=== PATIENT | female | born 1940 | race Caucasian/White ===

== ENCOUNTER 2016-11-13 12:27 | Emergency (ER) | payer MEDICARE, OTHER ==
--- NOTE | 2016-11-13 12:42 | ED Physician Documentation ---
History of Present Illness - Stated complaint Stated Complaint: L HAND SWELLING - Chief complaint Chief Complaint: Ext Problem - History obtained from History obtained from: Patient - Additonal information Additional information: This is a very pleasant 76-year-old woman with history of ovarian cancer, finished chemotherapy a few months ago. Still has a Port-A-Cath in place on the left. She returned from visiting to see her daughter in [place] 6 days ago and developed right hand and more recently left hand swelling associated with mild shortness of breath and feeling a little woozy and fatigue. There is no chest pain, no pedal edema, no changes in urinary habits. She has never had a DVT but is worried about this. Review of Systems Constitutional: reports: Fatigue. 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 : None HEENT: None Psych: Depression Musculoskeletal: Osteoarthritis Derm: None - Past Surgical History Past Surgical History: Yes Ortho: Hip replacement, Knee replacement /BAND SCROLL SAW OPERATOR: Hysterectomy HEENT: Tonsil/Adenoidectomy - Present Medications Home Medications: Ambulatory Orders Medication Instructions Recorded Confirmed Carvedilol 6.25 mg PO BID 02/16/16 09/19/16 Losartan [Cozaar] 25 mg PO DAILY 02/16/16 09/19/16 Omeprazole [PriLOSEC] 20 mg PO DAILY 02/16/16 09/19/16 Cyanocobalamin (Vitamin B-12) 1,000 mcg PO DAILY 03/27/16 09/19/16 [B-12] Bupropion HCl [Wellbutrin Sr] 150 mg PO BID 04/02/16 09/19/16 - Allergies Allergies/Adverse Reactions: Allergies Allergy/AdvReac Type Severity Reaction Status Date / Time morphine Allergy Nausea Verified 04/02/16 11:20 tolterodine Allergy Unknown Verified 04/02/16 11:20 lansoprazole AdvReac Unknown Verified 04/02/16 11:20 lisinopril AdvReac Rash Verified 04/02/16 11:20 oxybutynin AdvReac Cramps Verified 04/02/16 11:20 ranitidine AdvReac Unknown Verified 04/02/16 11:20 simvastatin AdvReac Unknown Verified 04/02/16 11:20 - Social History Does the pt smoke?: No Smoking Status: Former smoker Does the pt drink ETOH?: No Does the pt have substance abuse?: No - Immunizations Immunizations are current?: Yes - POLST Patient has POLST: No PD ED PE NORMAL - Vitals Vital signs reviewed: Yes (normal) - General General: Alert and oriented X 3, No acute distress - HEENT HEENT: PERRL, EOMI - Cardiac Cardiac: Other (No swelling or redness around her Port-A-Cath on the left chest wall) - Respiratory Respiratory: No respiratory distress - Extremities Extremities: Other (Mild swelling of the right hand with almost undetectable swelling of the left hand, no tenderness or limited range of motion or diminished radial pulses. No pedal edema.) - Neuro Neuro: Alert and oriented X 3, Normal speech - Psych Psych: Normal mood, Normal affect Results - Vitals Vitals: Vital Signs - 24 hr 11/13/16 12:31 Temperature 36.9 C Heart Rate 80 Respiratory 20 Rate Blood Pressure 110/69 O2 Saturation 99 Oxygen O2 Source Room air - Labs Labs: Laboratory Tests 11/13/16 11/13/16 14:37 14:37 WBC 7.3 RBC 3.35 L Hgb 11.0 L Hct 32.0 L MCV 95.7 MCH 32.7 H MCHC 34.2 RDW 12.5 Plt Count 177 MPV 6.9 L Neut # 5.0 Lymph # 1.6 [place] # 0.6 Eos # 0.1 Baso # 0.0 Absolute Nucleated RBC 0.00 Nucleated RBCs 0.0 Sodium 137 Potassium 4.1 Chloride 102 Carbon Dioxide 25 Anion Gap 10.0 BUN 35 H Creatinine 1.6 H Estimated GFR (MDRD) 32 L Glucose 102 H Calcium 9.9 Total Bilirubin 1.0 AST 15 ALT 14 Alkaline Phosphatase 69 Total Protein 7.7 Albumin 4.4 Globulin 3.3 Albumin/Globulin Ratio 1.3 Lipase 46 - Rads (name of study) BUE Doppler Radiology: Prelim report reviewed (no DVT) PD MEDICAL DECISION MAKING - ED course ED course: She presents with upper extremity edema that is barely noticeable on exam, there is no evidence of heart failure. She was worried about DVT related to her port, however this is not evident. Renal function is stable and anemia is improved compared to prior labs. Departure - Departure Disposition: 01 Home, Self Care Clinical Impression: Renal insufficiency, Edema of both upper extremities Anemia Qualifiers: Anemia type: other cause Other causes of anemia: antineoplastic chemotherapy Qualified Code(s): D64.81 - Anemia due to antineoplastic chemotherapy Condition: Good Record reviewed to determine appropriate education?: Yes Comments: Call your doctor to arrange a follow up appointment. Make the next available appointment. In the interim return anytime if worse or if new symptoms develop.
[2016-11-13 14:45] LABS: BASOPHILS % (AUTO) 0.2 %; EOSINOPHILS # (AUTO) 0.1 10^3/uL (0.0-0.7); EOSINOPHILS % (AUTO) 1.7 %; LYMPHOCYTES # (AUTO) 1.6 10^3/uL (1.5-3.5); LYMPHOCYTES % (AUTO) 21.9 %; MEAN CORPUSCULAR HEMOGLOBIN 32.7 pg (27.0-31.0); MEAN CORPUSCULAR HGB CONC 34.2 g/dL (32.0-36.0); MEAN CORPUSCULAR VOLUME 95.7 fL (81.0-99.0); MEAN PLATELET VOLUME 6.9 fL (7.9-10.8); MONOCYTES # (AUTO) 0.6 10^3/uL (0.0-1.0); MONOCYTES % (AUTO) 7.7 %; NEUTROPHILS % (AUTO) 68.5 %; RED BLOOD COUNT 3.35 10^6/uL (4.20-5.40); RED CELL DISTRIBUTION WIDTH 12.5 % (12.0-15.0); UNCORRECTED WHITE BLOOD COUNT 7.3 x10^3/uL; WHITE BLOOD COUNT 7.3 x10^3/uL (4.8-10.8)
[2016-11-13 14:58] LABS: ALBUMIN/GLOBULIN RATIO 1.3 (1.0-2.2); CALCIUM 9.9 mg/dL (8.5-10.3); CREATININE 1.6 mg/dL (0.4-1.0); POTASSIUM 4.1 mmol/L (3.5-5.0); TOTAL PROTEIN 7.7 g/dL (6.7-8.2)
[2016-11-13 15:18] VITALS: BP 126/78
--- NOTE | 2016-11-13 18:04 | Ultrasound Report ---
BILATERAL UPPER EXTREMITY VENOUS DUPLEX: 11/13/2016 CLINICAL INDICATION: Bilateral hand swelling. TECHNIQUE: Real-time sonographic vascular imaging was performed by the construction helper through the bilate ral upper extremities utilizing both color-flow and Doppler flow analysis. Multiple wireless sales representative st atic images were saved for review. FINDINGS: There is normal flow and compression in the bilateral internal jugular, subclavian, axilla ry, brachial, basilic, and cephalic veins. No DVT is identified. IMPRESSION: NO EVIDENCE OF A DVT IN EITHER ARM. JOB #: [id number] EXT JOB #:[id number]
== END 2016-11-13 15:18 | disposition home or self-care (01) ==
LOC: ED 12:27
DX: N28.9 Disorder of kidney and ureter, unspecified (principal); R60.9 Edema, unspecified; D64.81 Anemia due to antineoplastic chemotherapy; Z85.43 Personal history of malignant neoplasm of ovary; I10 Essential (primary) hypertension; K21.9 Gastro-esophageal reflux disease without esophagitis; M19.90 Unspecified osteoarthritis, unspecified site; Z87.891 Personal history of nicotine dependence
CPT/HCPCS: 36415; 80053; 83690; 85025; 93970; 99283

== ENCOUNTER 2016-12-10 11:15 | Outpatient (CLI) | payer MEDICARE, OTHER | END 2016-12-10 11:16 | disposition home or self-care (01) | DX: C57.02 Malignant neoplasm of left fallopian tube (principal) ==

== ENCOUNTER 2017-01-24 13:00 | Outpatient (CLI) | payer MEDICARE, OTHER | END 2017-01-24 13:01 | disposition home or self-care (01) | LOC: LAB.F 13:00 | PROVIDERS: ATTEND Urology | DX: N30.90 Cystitis, unspecified without hematuria (principal); R39.15 Urgency of urination | CPT/HCPCS: 87086 ==

== ENCOUNTER 2017-02-27 00:01 | Outpatient (CLI) | payer MEDICARE, OTHER | END 2017-02-27 00:02 | disposition critical access hospital (66) | LOC: EMS 00:01 | PROVIDERS: ATTEND Surgery | DX: I10 Essential (primary) hypertension (principal) | CPT/HCPCS: A0425; A0429 ==

== ENCOUNTER 2017-02-27 00:22 | Emergency (ER) | payer MEDICARE, OTHER ==
[2017-02-27 00:40] LABS: BILIRUBIN,URINE NEGATIVE (NEGATIVE); PH,URINE 6.5 PH (5.0-7.5)
[2017-02-27 00:41] LABS: UA w/ MICROSCOPIC CHARGE YES
[2017-02-27 00:47] LABS: UR CULTURE IF IND NOT INDICATED; WBC,URINE 0-3 /HPF (0-5)
[2017-02-27 01:03] LABS: BASOPHILS % (AUTO) 1.1 %; EOSINOPHILS # (AUTO) 0.1 10^3/uL (0.0-0.7); EOSINOPHILS % (AUTO) 1.2 %; HGB - HEMOGLOBIN 10.8 g/dL (12.0-16.0); LYMPHOCYTES # (AUTO) 1.7 10^3/uL (1.5-3.5); LYMPHOCYTES % (AUTO) 40.9 %; MEAN CORPUSCULAR HEMOGLOBIN 33.1 pg (27.0-31.0); MEAN CORPUSCULAR HGB CONC 34.7 g/dL (32.0-36.0); MEAN CORPUSCULAR VOLUME 95.5 fL (81.0-99.0); MEAN PLATELET VOLUME 6.6 fL (7.9-10.8); MONOCYTES # (AUTO) 0.8 10^3/uL (0.0-1.0); MONOCYTES % (AUTO) 19.2 %; NEUTROPHILS # (AUTO) 1.5 10^3/uL (1.5-6.6); NEUTROPHILS % (AUTO) 37.6 %; RED BLOOD COUNT 3.25 10^6/uL (4.20-5.40); UNCORRECTED WHITE BLOOD COUNT 4.1 x10^3/uL; WHITE BLOOD COUNT 4.1 x10^3/uL (4.8-10.8)
[2017-02-27 01:19] LABS: ALBUMIN/GLOBULIN RATIO 1.5 (1.0-2.2); BILIRUBIN,TOTAL 0.6 mg/dL (0.2-1.0); CALCIUM 9.8 mg/dL (8.5-10.3); CREATININE 1.2 mg/dL (0.4-1.0); POTASSIUM 3.7 mmol/L (3.5-5.0); TOTAL PROTEIN 7.6 g/dL (6.7-8.2)
[2017-02-27] MEDS ORDERED: LABETALOL 5 MG/1 ML 20 ML MDV IVP STA ×2 (01:19→02:20)
[2017-02-27] MEDS ORDERED: LABETALOL 20 MG/4 ML SYRINGE IVP ONE (01:25)
[2017-02-27] MEDS ORDERED: SODIUM CHLORIDE FLUSH 0.9% 10 ML SYRINGE IVP ONE (02:20)
[2017-02-27] MEDS ORDERED: ACETAMINOPHEN 500 MG TABLET PO STA (02:50)
--- NOTE | 2017-02-27 02:50 | ED Physician Documentation ---
History of Present Illness - Stated complaint Stated Complaint: HIGH BP - Chief complaint Chief Complaint: General - History obtained from History obtained from: Patient - History of Present Illness Timing: Today - Additonal information Additional information: 77 y/o female on avastin and adriamycin for recurrent ovarian CA has developed hypertension with a headache. She does not get headaches and her blood pressure has been markedly elevated. She has the headache but no vomiting or visual changes. Review of Systems Constitutional: denies: Fever, Myalgias, Fatigue Eyes: denies: Decreased vision Ears: denies: Ear pain Nose: denies: Congestion Throat: denies: Sore throat Cardiac: denies: Chest pain / pressure, Palpitations Respiratory: denies: Dyspnea, Cough GI: denies: Abdominal Pain, Nausea, Vomiting : denies: Dysuria, Frequency Skin: denies: Rash Musculoskeletal: denies: Neck pain, Back pain, Extremity pain Neurologic: reports: Headache. 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 cancer : None HEENT: None Psych: Depression Musculoskeletal: Osteoarthritis Derm: None - Past Surgical History Past Surgical History: Yes Ortho: Hip replacement, Knee replacement /STUNNER ANIMAL: Hysterectomy HEENT: Tonsil/Adenoidectomy - Present Medications Home Medications: Ambulatory Orders Medication Instructions Recorded Confirmed Carvedilol 6.25 mg PO BID 02/16/16 02/27/17 Losartan [Cozaar] 25 mg PO DAILY 02/16/16 02/27/17 Omeprazole [PriLOSEC] 20 mg PO DAILY 02/16/16 02/27/17 Cyanocobalamin (Vitamin B-12) 1,000 mcg PO DAILY 03/27/16 02/27/17 [B-12] Bupropion HCl [Wellbutrin Sr] 150 mg PO BID 04/02/16 02/27/17 Chemo 02/27/17 Labetalol [Trandate] 100 mg PO BID #30 tablet 02/27/17 - Allergies Allergies/Adverse Reactions: Allergies Allergy/AdvReac Type Severity Reaction Status Date / Time morphine Allergy Nausea Verified 02/27/17 00:45 tolterodine Allergy Unknown Verified 02/27/17 00:45 lansoprazole AdvReac Unknown Verified 02/27/17 00:45 lisinopril AdvReac Rash Verified 02/27/17 00:45 oxybutynin AdvReac Cramps Verified 02/27/17 00:45 ranitidine AdvReac Unknown Verified 02/27/17 00:45 simvastatin AdvReac Unknown Verified 02/27/17 00:45 - Social History Does the pt smoke?: No Smoking Status: Former smoker Does the pt drink ETOH?: No Does the pt have substance abuse?: No - Immunizations Immunizations are current?: Yes - POLST Patient has POLST: No PD ED PE NORMAL - Vitals Vital signs reviewed: Yes (hypertensive marked) - General General: Alert and oriented X 3, No acute distress, Well developed/nourished - HEENT HEENT: Atraumatic, PERRL, EOMI - Neck Neck: Supple, no meningeal sign - Cardiac Cardiac: RRR, No murmur - Respiratory Respiratory: No respiratory distress, Clear bilaterally - Abdomen Abdomen: Soft, Non tender - Back Back: No CVA TTP, No spinal TTP - Derm Derm: Normal color, Warm and dry, No rash - Extremities Extremities: No deformity, No edema - Neuro Neuro: mushroom laborer 2-12 intact, No motor deficit, No sensory deficit, Normal speech - Psych Psych: Normal mood, Normal affect Results - Vitals Vitals: Vital Signs - 24 hr 02/27/17 02/27/17 02/27/17 00:26 01:30 01:35 Temperature 36.2 C L Heart Rate 99 70 71 Respiratory 16 Rate Blood Pressure 204/116 H 170/84 H 177/81 H O2 Saturation 98 02/27/17 02/27/17 02/27/17 01:40 01:45 02:18 Temperature Heart Rate 67 69 73 Respiratory 18 Rate Blood Pressure 180/96 H 184/99 H 174/91 H O2 Saturation 98 02/27/17 02/27/17 02/27/17 02:30 02:40 02:48 Temperature Heart Rate 73 68 67 Respiratory 16 18 Rate Blood Pressure 154/88 H 171/87 H 159/87 H O2 Saturation 98 98 02/27/17 03:24 Temperature Heart Rate 73 Respiratory Rate Blood Pressure 164/91 H O2 Saturation 98 Oxygen O2 Source Room air - EKG (time done) 0045 Rate: Rate (enter#) (79) Ischemia: Normal ST segments, Q waves (isolated to III and aVF) Compare to prior EKG: Unchanged from prior EKG (04-06-16) Computer interpretation: Agree with computer - Labs Labs: Laboratory Tests 02/27/17 02/27/17 02/27/17 00:30 00:56 00:56 WBC 4.1 L RBC 3.25 L Hgb 10.8 L Hct 31.0 L MCV 95.5 MCH 33.1 H MCHC 34.7 RDW 16.0 H Plt Count 137 MPV 6.6 L Neut # 1.5 Lymph # 1.7 [place] # 0.8 Eos # 0.1 Baso # 0.0 Absolute Nucleated RBC 0.00 Nucleated RBCs 0.0 Sodium 138 Potassium 3.7 Chloride 103 Carbon Dioxide 24 Anion Gap 11.0 BUN 31 H Creatinine 1.2 H Estimated GFR (MDRD) 44 L Glucose 92 Calcium 9.8 Total Bilirubin 0.6 AST 19 ALT 16 Alkaline Phosphatase 57 Troponin I B-Natriuretic Peptide Total Protein 7.6 Albumin 4.6 Globulin 3.0 Albumin/Globulin Ratio 1.5 Lipase 29 Urine Color YELLOW Urine Clarity CLEAR Urine pH 6.5 Ur Specific [place] 1.010 Urine Protein 30 H Urine Glucose (UA) NEGATIVE Urine Ketones NEGATIVE Urine Occult Blood NEGATIVE Urine Nitrite NEGATIVE Urine Bilirubin NEGATIVE Urine Urobilinogen 0.2 (NORMAL) Ur Leukocyte Esterase NEGATIVE Urine RBC 0-5 Urine WBC 0-3 Ur Squamous Epith Cells MANY Squamous H Urine Bacteria Rare Ur Microscopic Review INDICATED Urine Culture Comments NOT INDICATED 02/27/17 02/27/17 00:56 00:56 WBC RBC Hgb Hct MCV MCH MCHC RDW Plt Count MPV Neut # Lymph # [place] # Eos # Baso # Absolute Nucleated RBC Nucleated RBCs Sodium Potassium Chloride Carbon Dioxide Anion Gap BUN Creatinine Estimated GFR (MDRD) Glucose Calcium Total Bilirubin AST ALT Alkaline Phosphatase Troponin I < 0.04 B-Natriuretic Peptide 439 H Total Protein Albumin Globulin Albumin/Globulin Ratio Lipase Urine Color Urine Clarity Urine pH Ur Specific [place] Urine Protein Urine Glucose (UA) Urine Ketones Urine Occult Blood Urine Nitrite Urine Bilirubin Urine Urobilinogen Ur Leukocyte Esterase Urine RBC Urine WBC Ur Squamous Epith Cells Urine Bacteria Ur Microscopic Review Urine Culture Comments PD MEDICAL DECISION MAKING - ED course Complexity details: reviewed old records, reviewed results, re-evaluated patient , considered differential, d/w patient ED course: 77 y/o female with symptomatic hypertension on avastin is given IV labetalol 10mg with reduction in the blood pressure and a second dose is given with further reduction. She is given tylenol for the headache and her blood pressure is considered treatable with the labatelol and we will start her on an oral preparation to use while she is on the avastin Departure - Departure Disposition: Home, Self Care Clinical Impression: Hypertensive urgency Condition: Stable Instructions: Hypertension Malignant Dc Follow-Up: ANTONIA GODWIN [Primary Care Provider] - Prescriptions: Labetalol [Trandate] 100 mg PO BID #30 tablet Comments: Today your blood pressure was very high and caused symptoms. The highest we registered today was 204/116. You were given labetalol intravenously a total of 20mg. This medication is available in an oral form and we have prescribed 100mg twice per day to start. It may be necessary to increase the dose in 3-4 days. Follow up with Dr. Kelly today as planned.
[2017-02-27] MEDS ORDERED: ACETAMINOPHEN 500 MG TABLET PO ONE (02:51)
[2017-02-27 04:01] VITALS: BP 153/82
== END 2017-02-27 04:01 | disposition home or self-care (01) ==
LOC: EDUNIT# → ED 00:22 → SUPCPDRO 00:22 → ED 04:01
DX: I16.0 Hypertensive urgency (principal); R51 Headache; C56.9 Malignant neoplasm of unspecified ovary; Z87.891 Personal history of nicotine dependence
CPT/HCPCS: 36415; 80053; 81001; 83690; 83880; 84484; 85025; 93005; 93010; 96374; 96376; 99284; A9270; 81003; 87086

== ENCOUNTER 2017-04-19 09:48 | Outpatient (CLI) | payer MEDICARE, OTHER ==
--- NOTE | 2017-04-19 15:14 | CT Report ---
CT OF THE CHEST WITHOUT CONTRAST: 04/19/2017 CLINICAL INDICATION: Recurrent ovarian cancer. COMPARISON: 11/27/2016. TECHNIQUE: Axial CT images of the chest were obtained without intravenous contrast. FINDINGS: The heart and great vessels demonstrate mild atherosclerotic calcification. No hilar or me diastinal lymphadenopathy is present. The lungs demonstrate linear scarring at the right base. No mary picious pulmonary nodule or mass lesion is present. No effusion or pneumothorax is seen. The osseous structures demonstrate degenerative changes. IMPRESSION: RESOLUTION OF PREVIOUSLY SEEN RIGHT EFFUSION. LINEAR SCARRING AT THE RIGHT BASE. NO DEFI NITE EVIDENCE OF METASTATIC DISEASE. In accordance with CT protocol optimization, one or more of the following dose reduction techniques w ere utilized for this exam: automated exposure control, adjustment of mA and/or KV based on patient size, or use of iterative reconstructive technique. JOB #: [id number] EXT JOB #:[id number]
--- NOTE | 2017-04-19 15:20 | CT Report ---
CT OF THE ABDOMEN AND PELVIS WITHOUT CONTRAST: 04/19/2017 CLINICAL INDICATION: Recurrent ovarian cancer. TECHNIQUE: Axial CT images of the abdomen and pelvis were obtained without intravenous contrast, due to patient's renal dysfunction. Oral contrast was administered. FINDINGS: ABDOMEN: Allowing for the lack of intravenous contrast enhancement, the liver, spleen, pancreas, kidn eys and adrenal glands appear unremarkable. No bowel dilatation, free gas, or free fluid is present. No definite abdominal adenopathy is seen. PELVIS: Nodularity in the pericolic gutters has decreased. Postoperative changes are stable. No free fluid or pelvic adenopathy is seen. The osseous structures demonstrate degenerative changes. IMPRESSION: DECREASING NODULARITY IN THE PERICOLIC GUTTERS. NO NEW EVIDENCE OF METASTATIC DISEASE. In accordance with CT protocol optimization, one or more of the following dose reduction techniques w ere utilized for this exam: automated exposure control, adjustment of mA and/or KV based on patient size, or use of iterative reconstructive technique. JOB #: [id number] EXT JOB #:[id number]
[2017-04-19] MEDS ORDERED: IOPAMIDOL-300 50 ML VIAL PO ONE (19:08)
== END 2017-04-19 09:49 | disposition home or self-care (01) ==
LOC: DI 09:48
PROVIDERS: ATTEND Specialist
DX: C56.9 Malignant neoplasm of unspecified ovary (principal)
CPT/HCPCS: 71250; 74176; Q9967

== ENCOUNTER 2018-04-07 14:17 | Outpatient (CLI) | payer MEDICARE, OTHER ==
[~2018-04-07 14:17] MED LIST: DEXAMETHASONE 20 MG/5 ML VIAL ONE; SODIUM CHLORIDE 0.9% 0 ML IV ONE; SODIUM CHLORIDE FLUSH 0.9% 10 ML SYRINGE ONE; diphenhydrAMINE INJ 50 MG/ML VIAL ONE
--- NOTE | 2018-04-09 08:41 | Mammography Report ---
Procedure Date: 04/07/2018 Accession Number: [id number] / [id number] Procedure: [facility] - Screening Mammo Dig Bilat CPT Code: FULL RESULT: EXAM: Screening Mammo Dig Bilat DATE: 04/07/2018 3:27 PM CLINICAL HISTORY: 78-year-old female with personal history of ovarian cancer as well as a family history of breast cancer in her daughter at age 35. TECHNIQUE: Bilateral CC and MLO views were obtained. COMPARISON: 03/01/2015, 10/16/2013, 02/28/2012, 03/12/2011. FINDINGS: The breasts demonstrate scattered fibroglandular densities bilaterally. Coarse typically benign calcifications are identified in both breasts. A port-type catheter is partially imaged over the left chest. No suspicious masses, clustered microcalcifications, or regions of architectural distortion are identified. IMPRESSION: Benign findings RECOMMENDATION: Routine annual screening unless otherwise clinically indicated. BIRADS CATEGORY 2: Benign findings STANDARD QUALIFYING STATEMENTS: 1. This examination was reviewed with the aid of Computer-Aided Detection (CAD). 2. A negative or benign imaging report should not delay biopsy if clinically suspicious findings are present. Consider surgical consultation if warrented. More than 5% of cancers are not identified by imaging. 3. Dense breasts may obscure an underlying neoplasm.
== END 2018-04-07 14:18 | disposition home or self-care (01) ==
LOC: DI 14:17
PROVIDERS: ATTEND Internal Medicine
DX: Z12.31 Encounter for screening mammogram for malignant neoplasm of breast (principal)
CPT/HCPCS: 77067

== ENCOUNTER 2018-04-18 09:35 | Outpatient (CLI) | payer MEDICARE, OTHER | END 2018-04-18 09:36 | disposition home or self-care (01) | LOC: DI 09:35 | PROVIDERS: ATTEND Internal Medicine | DX: C56.9 Malignant neoplasm of unspecified ovary (principal) | CPT/HCPCS: 93306 ==

== ENCOUNTER 2018-06-23 10:38 | Outpatient (CLI) | payer MEDICARE, OTHER | END 2018-06-23 10:39 | disposition critical access hospital (66) | LOC: EMS 10:38 | PROVIDERS: ATTEND Surgery | DX: I10 Essential (primary) hypertension (principal); R51 Headache | CPT/HCPCS: A0425; A0429 ==

== ENCOUNTER 2018-06-23 11:00 | Emergency (ER) | payer MEDICARE, OTHER ==
[2018-06-23] MEDS ORDERED: METOPROLOL 5 MG/5 ML VIAL IVP STA (11:25)
[2018-06-23] MEDS ORDERED: oxyCODONE 5 MG TABLET PO STA (11:26)
[2018-06-23] MEDS ORDERED: ONDANSETRON ODT 4 MG TABLET TL STA (11:26)
--- NOTE | 2018-06-23 11:28 | ED Physician Documentation ---
History of Present Illness - Stated complaint Stated Complaint: PALMER - Chief complaint Chief Complaint: General - Additonal information Additional information: hx from pt 78 f recurrent ovarian cancer recently avastatin was added to her chemo plan this has caused her to have a hypertensive urgency before and again she has severely elevated BP >200/120 spoke to her oncologist who had her take extra doses of her BP meds s effect has a pounding PALMER with this, no numbness or weakness and has 15 min of CP and soa this AM now better Review of Systems Constitutional: denies: Fever, Chills Eyes: denies: Loss of vision Ears: denies: Loss of hearing Throat: denies: Sore throat Cardiac: reports: Chest pain / pressure Respiratory: reports: Dyspnea GI: denies: Abdominal Pain, Nausea, Vomiting Neurologic: reports: Headache. 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 : None HEENT: None Psych: Depression Musculoskeletal: Osteoarthritis Derm: None - Past Surgical History Past Surgical History: Yes Ortho: Hip replacement, Knee replacement /WET WHEELER: Hysterectomy HEENT: Tonsil/Adenoidectomy - Present Medications Home Medications: Ambulatory Orders Medication Instructions Recorded Confirmed Carvedilol 6.25 mg PO BID 02/16/16 06/23/18 Losartan [Cozaar] 50 mg PO DAILY 02/16/16 06/23/18 Omeprazole [PriLOSEC] 20 mg PO DAILY 02/16/16 06/23/18 Cyanocobalamin (Vitamin B-12) 1,000 mcg PO DAILY 03/27/16 06/23/18 [B-12] Bupropion HCl [Wellbutrin Sr] 150 mg PO BID 04/02/16 06/23/18 Propylene Glycol/Peg 400 [Systane 2 drops EACHEYE TID 06/12/17 06/23/18 Ultra 0.4-0.3% Eye Drp] Dexamethasone [Decadron] 8 mg PO DAILY PRN MDD On Days 2, 02/06/18 06/23/18 3, 4 s/p chemo infu Cyclosporine [Restasis] 1 drops EACHEYE BID 08/01/18 10/08/18 predniSONE [Prednisone] 20 mg PO DAILY 06/18/18 06/23/18 - Allergies Allergies/Adverse Reactions: Allergies Allergy/AdvReac Type Severity Reaction Status Date / Time morphine Allergy Nausea Verified 06/18/18 13:42 tolterodine Allergy Unknown Verified 06/18/18 13:42 lansoprazole AdvReac Unknown Verified 06/18/18 13:42 lisinopril AdvReac Rash Verified 06/18/18 13:42 oxybutynin AdvReac Cramps Verified 06/18/18 13:42 ranitidine AdvReac Unknown Verified 06/18/18 13:42 simvastatin AdvReac Unknown Verified 06/18/18 13:42 - Social History Does the pt smoke?: No Smoking Status: Former smoker Does the pt drink ETOH?: No Does the pt have substance abuse?: No - Immunizations Immunizations are current?: Yes - POLST Patient has POLST: No PD ED PE NORMAL - Vitals Vital signs reviewed: Yes - General General: Alert and oriented X 3 - HEENT HEENT: PERRL, EOMI, Other (globes soft NT< no TA TTP, fundi diff to assess 2/2 catarct surgery and not dilated) - Neck Neck: Supple, no meningeal sign - Cardiac Cardiac: RRR - Respiratory Respiratory: No respiratory distress - Abdomen Abdomen: Soft, Non tender - Derm Derm: Normal color - Extremities Extremities: No deformity - Neuro Neuro: Alert and oriented X 3, business proposal rep 2-12 intact, No motor deficit, No sensory d eficit, Normal speech Eye Opening: Spontaneous Motor: Obeys Commands Verbal: Oriented GCS Score: 15 Results - Vitals Vitals: Vital Signs - 24 hr 06/23/18 11:13 Temperature 36.8 C Heart Rate 79 Respiratory 16 Rate Blood Pressure 182/114 H O2 Saturation 98 Oxygen O2 Source Room air - EKG (time done) 1129 Rate: Rate (enter#) Rhythm: NSR Intervals: No: Prolonged QT (machine reads prolonged but in lead V2 appears WNL and certainly < 1/2 R-R) Ischemia: Non specific changes PD MEDICAL DECISION MAKING - ED course ED course: labs done but won't down load into MD note - were reviewed no end organ damage identified CP was only 15 min and so doubt serial CE etc will be of use no CP now BP came down nicely feel safe to dc on her home meds as before and consider not using that chemo for this pt again as it has twice caused hypertensive urgency - Sepsis Event Vital Signs: Vital Signs - 24 hr 06/23/18 11:13 Temperature 36.8 C Heart Rate 79 Respiratory 16 Rate Blood Pressure 182/114 H O2 Saturation 98 Oxygen O2 Source Room air Departure - Departure Disposition: Home, Self Care Clinical Impression: Hypertensive urgency Condition: Good Instructions: ED Hypertension Conf Out Of Control Follow-Up: ANTONIA GODWIN [Primary Care Provider] - Comments: Your blood pressure was very high. Probably due to the avastin since you have had a similar reaction to that agent before. Thankfully no damage seems to have been done Your blood pressure came down nicely with a dose of IV lopressor I think it is now safe for you to go home Please talk to your oncologist about whether this chemo agent is right for you since it has twice caused a hypertensive urgency. Continue your usual home BP medications. If your blood pressure gets high again please jamila your oncologist PMD or come back to the ER Discharge Date/Time: 06/23/18 13:49
[2018-06-23 12:04] LABS: CREATININE 1.3 mg/dL (0.4-1.0)
[2018-06-23 12:44] LABS: CALCIUM 9.4 mg/dL (8.5-10.3)
[2018-06-23 13:42] VITALS: BP 164/97
== END 2018-06-23 13:49 | disposition home or self-care (01) ==
LOC: EDUNIT# → ED 11:00
DX: I16.0 Hypertensive urgency (principal); T45.1X1A Poisoning by antineoplastic and immunosuppressive drugs, accidental (unintentional), initial encounter; I45.81 Long QT syndrome; Z79.899 Other long term (current) drug therapy; Z87.891 Personal history of nicotine dependence
CPT/HCPCS: 36415; 80048; 84484; 93005; 99283; 99284; A9270; Q0162

== ENCOUNTER 2018-07-05 13:22 | Emergency (ER) | payer MEDICARE, OTHER ==
[2018-07-05] MEDS ORDERED: HYDROmorphone 1 MG/ML CARPUJECT IVP STA (14:28)
[2018-07-05] MEDS ORDERED: METOPROLOL 5 MG/5 ML VIAL IVP STA (14:28)
[2018-07-05] MEDS ORDERED: ONDANSETRON 4 MG/2 ML VIAL IVP STA (14:28)
--- NOTE | 2018-07-05 14:32 | ED Physician Documentation ---
PD HPI HEADACHE - Stated complaint Stated Complaint: BP HIGH/HEADACHE - Chief complaint Chief Complaint: General - History obtained from History obtained from: Patient, Family - History of Present Illness Timing - onset: Last night Timing - onset during: Sleep Timing - duration: Hours Timing - details: Abrupt onset, Still present Location: Front Quality: Throbbing Associated symptoms: No: Fever, Stiff neck, Nausea, Vomiting, Weakness, Numbness, Syncope, Seizure, Eye pain, Vision changes Improved by: Rest, Dark room Worsened by: Light, Noise Contributing factors: Other (chemo) Similar symptoms before: Diagnosis (chemo induced hypertension) Recently seen: Emergency Dept - Additional information Additional information: 78-year-old female with ovarian cancer who is on palliative chemotherapy with a Avastin has developed chemo induced hypertension. She has had this issue happen to her previously and required a dose of labetalol. She is also recently been seen in the emergency department 1 week ago and at that time improved with a dose of metoprolol intravenously. She states that she last had a dose of a Avastin about 3 weeks ago and she developed symptoms 1 week ago the seem to been better over the week and then she developed symptoms last night. She has symptoms of generalized weakness headache and fatigue. Review of Systems Constitutional: reports: Myalgias, Fatigue. denies: Fever Eyes: denies: Decreased vision Ears: denies: Ear pain Nose: denies: Congestion Throat: denies: Sore throat Cardiac: denies: Chest pain / pressure, Palpitations Respiratory: denies: Dyspnea, Cough GI: denies: Abdominal Pain, Nausea, Vomiting : denies: Dysuria, Frequency Skin: denies: Rash Musculoskeletal: denies: Neck pain, Back pain, Extremity pain Neurologic: reports: Generalized weakness, Headache. 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 HEENT: None Psych: Depression Musculoskeletal: Osteoarthritis Derm: None - Past Surgical History Past Surgical History: Yes Ortho: Hip replacement, Knee replacement /INTELLIGENCE CHIEF: Hysterectomy HEENT: Tonsil/Adenoidectomy - Present Medications Home Medications: Ambulatory Orders Medication Instructions Recorded Confirmed Carvedilol 6.25 mg PO BID 02/16/16 07/05/18 Losartan [Cozaar] 50 mg PO DAILY 02/16/16 07/05/18 Omeprazole [PriLOSEC] 20 mg PO DAILY 02/16/16 07/05/18 Cyanocobalamin (Vitamin B-12) 1,000 mcg PO DAILY 03/27/16 07/05/18 [B-12] Bupropion HCl [Wellbutrin Sr] 150 mg PO BID 04/02/16 07/05/18 Propylene Glycol/Peg 400 [Systane 2 drops EACHEYE TID 06/12/17 07/05/18 Ultra 0.4-0.3% Eye Drp] Dexamethasone [Decadron] 8 mg PO DAILY PRN MDD On Days 2, 02/06/18 07/05/18 3, 4 s/p chemo infu Cyclosporine [Restasis] 1 drops EACHEYE BID 04/16/18 07/05/18 predniSONE [Prednisone] 20 mg PO DAILY 06/18/18 07/05/18 - Allergies Allergies/Adverse Reactions: Allergies Allergy/AdvReac Type Severity Reaction Status Date / Time morphine Allergy Nausea Verified 06/18/18 13:42 tolterodine Allergy Unknown Verified 06/18/18 13:42 lansoprazole AdvReac Unknown Verified 06/18/18 13:42 lisinopril AdvReac Rash Verified 06/18/18 13:42 oxybutynin AdvReac Cramps Verified 06/18/18 13:42 ranitidine AdvReac Unknown Verified 06/18/18 13:42 simvastatin AdvReac Unknown Verified 06/18/18 13:42 - Social History Does the pt smoke?: No Smoking Status: Never smoker Does the pt drink ETOH?: No Does the pt have substance abuse?: No - Immunizations Immunizations are current?: Yes - POLST Patient has POLST: No PD ED PE NORMAL - Vitals Vital signs reviewed: Yes (tachy and hypertensive ) - General General: Alert and oriented X 3, No acute distress, Well developed/nourished - HEENT HEENT: Atraumatic, PERRL, EOMI - Neck Neck: Supple, no meningeal sign - Cardiac Cardiac: RRR, No murmur - Respiratory Respiratory: No respiratory distress, Clear bilaterally - Abdomen Abdomen: Soft, Non tender - Back Back: No CVA TTP, No spinal TTP - Derm Derm: Normal color, Warm and dry, No rash - Extremities Extremities: No deformity, No edema - Neuro Neuro: Alert and oriented X 3, child custody evaluator 2-12 intact, No motor deficit, No sensory deficit, Normal speech Eye Opening: Spontaneous Motor: Obeys Commands Verbal: Oriented GCS Score: 15 - Psych Psych: Normal mood, Normal affect Results - Vitals Vitals: Vital Signs - 24 hr 07/05/18 07/05/18 07/05/18 13:28 13:42 14:58 Temperature 36.9 C Heart Rate 101 H 85 75 Respiratory 18 18 16 Rate Blood Pressure 187/117 H 189/120 H 173/104 H O2 Saturation 98 99 96 07/05/18 15:30 Temperature Heart Rate 71 Respiratory 14 Rate Blood Pressure 150/96 H O2 Saturation 99 Oxygen O2 Source Room air - Labs Labs: Laboratory Tests 07/05/18 07/05/18 07/05/18 14:38 14:45 14:45 WBC 3.2 L RBC 2.86 L Hgb 10.3 L Hct 29.6 L MCV 103.3 H MCH 36.0 H MCHC 34.9 RDW 15.4 H Plt Count 149 MPV 7.4 L Neut # (Auto) 1.7 Lymph # (Auto) 0.9 L [place] # (Auto) 0.5 Eos # (Auto) 0.1 Baso # (Auto) 0.0 Absolute Nucleated RBC 0.00 Nucleated RBC % 0.0 Sodium 136 Potassium 4.1 Chloride 100 L Carbon Dioxide 25 Anion Gap 11.0 BUN 29 H Creatinine 1.5 H Estimated GFR (MDRD) 34 L Glucose 106 H Calcium 9.7 Total Bilirubin 1.0 AST 22 ALT 14 Alkaline Phosphatase 68 Troponin I Total Protein 7.7 Albumin 4.1 Globulin 3.6 Albumin/Globulin Ratio 1.1 Lipase 31 Urine Color YELLOW Urine Clarity CLEAR Urine pH 8.0 H Ur Specific [place] 1.015 Urine Protein 30 H Urine Glucose (UA) NEGATIVE Urine Ketones NEGATIVE Urine Occult Blood NEGATIVE Urine Nitrite NEGATIVE Urine Bilirubin NEGATIVE Urine Urobilinogen 0.2 (NORMAL) Ur Leukocyte Esterase NEGATIVE Urine RBC 0-5 Urine WBC 0-3 Ur Squamous Epith Cells FEW Squamous Urine Bacteria None Seen Ur Microscopic Review INDICATED Urine Culture Comments NOT INDICATED 07/05/18 14:45 WBC RBC Hgb Hct MCV MCH MCHC RDW Plt Count MPV Neut # (Auto) Lymph # (Auto) [place] # (Auto) Eos # (Auto) Baso # (Auto) Absolute Nucleated RBC Nucleated RBC % Sodium Potassium Chloride Carbon Dioxide Anion Gap BUN Creatinine Estimated GFR (MDRD) Glucose Calcium Total Bilirubin AST ALT Alkaline Phosphatase Troponin I 0.04 Total Protein Albumin Globulin Albumin/Globulin Ratio Lipase Urine Color Urine Clarity Urine pH Ur Specific [place] Urine Protein Urine Glucose (UA) Urine Ketones Urine Occult Blood Urine Nitrite Urine Bilirubin Urine Urobilinogen Ur Leukocyte Esterase Urine RBC Urine WBC Ur Squamous Epith Cells Urine Bacteria Ur Microscopic Review Urine Culture Comments Procedures - IVC sono (time) 1425 Bedside IVC sono: IVC measures (cm) (1.88), IVC collapsed c insp (cm) (1.1), Euvolemia PD MEDICAL DECISION MAKING - ED course Complexity details: reviewed old records, reviewed results, re-evaluated patient, considered differential, d/w patient, d/w family ED course: 78 y/o female with hypertensive urgency related to avastin is given IV metoprolol and medication for pain to include dilaudid and zofran IVP. Departure - Departure Disposition: 01 Home, Self Care Clinical Impression: Hypertensive urgency Condition: Stable Instructions: ED Hypertension Conf Out Of Control Follow-Up: ANTONIA GODWIN [Primary Care Provider] -
[2018-07-05 14:57] LABS: BASOPHILS % (AUTO) 0.5 %; EOSINOPHILS # (AUTO) 0.1 10^3/uL (0.0-0.7); EOSINOPHILS % (AUTO) 2.8 %; HGB - HEMOGLOBIN 10.3 g/dL (12.0-16.0); LYMPHOCYTES # (AUTO) 0.9 10^3/uL (1.5-3.5); LYMPHOCYTES % (AUTO) 28.6 %; MEAN CORPUSCULAR HGB CONC 34.9 g/dL (32.0-36.0); MEAN CORPUSCULAR VOLUME 103.3 fL (81.0-99.0); MEAN PLATELET VOLUME 7.4 fL (7.9-10.8); MONOCYTES # (AUTO) 0.5 10^3/uL (0.0-1.0); MONOCYTES % (AUTO) 15.3 %; NEUTROPHILS # (AUTO) 1.7 10^3/uL (1.5-6.6); NEUTROPHILS % (AUTO) 52.8 %; PLT - PLATELET COUNT 149 10^3/uL (130-450); RED BLOOD COUNT 2.86 10^6/uL (4.20-5.40); RED CELL DISTRIBUTION WIDTH 15.4 % (12.0-15.0); WHITE BLOOD COUNT 3.2 x10^3/uL (4.8-10.8)
[2018-07-05 15:06] LABS: BILIRUBIN,URINE NEGATIVE (NEGATIVE); GLUCOSE, URINE (UA) NEGATIVE (NEGATIVE); KETONES,URINE (UA) NEGATIVE (NEGATIVE); LEUKOCYTE ESTERASE, URINE NEGATIVE (NEGATIVE); NITRITE,URINE NEGATIVE (NEGATIVE); OCCULT BLOOD,URINE NEGATIVE (NEGATIVE); PROTEIN,URINE 30 mg/dL (NEGATIVE); UROBILINOGEN,URINE 0.2 (NORMAL) E.U./dL (NORMAL)
[2018-07-05 15:18] LABS: ALBUMIN 4.1 g/dL (3.2-5.5); ALBUMIN/GLOBULIN RATIO 1.1 (1.0-2.2); CALCIUM 9.7 mg/dL (8.5-10.3); CREATININE 1.5 mg/dL (0.4-1.0); TOTAL PROTEIN 7.7 g/dL (6.7-8.2)
[2018-07-05 15:20] LABS: CLARITY,URINE CLEAR (CLEAR)
[2018-07-05 15:21] LABS: BACTERIA,URINE None Seen /HPF (None Seen); RBC,URINE 0-5 /HPF (0-5); SQUAMOUS EPITHELIAL CELL,UR FEW Squamous (<= Few)
[2018-07-05 16:00] VITALS: BP 164/106
== END 2018-07-05 16:00 | disposition home or self-care (01) ==
LOC: ED 13:22
DX: I16.0 Hypertensive urgency (principal); Z79.899 Other long term (current) drug therapy; I10 Essential (primary) hypertension
CPT/HCPCS: 36415; 80053; 81001; 83690; 84484; 85025; 96374; 96375; 99284; J1170; 81003; 87086

== ENCOUNTER 2018-07-11 20:05 | Outpatient (CLI) | payer MEDICARE, OTHER | END 2018-07-11 20:06 | disposition critical access hospital (66) | LOC: EMS 20:05 | PROVIDERS: ATTEND Surgery | DX: R06.02 Shortness of breath (principal); R53.1 Weakness | CPT/HCPCS: A0425; A0429 ==

== ENCOUNTER 2018-07-11 20:28 | Emergency (ER) | payer MEDICARE, OTHER ==
[2018-07-11] MEDS ORDERED: METOPROLOL 5 MG/5 ML VIAL IVP STA ×3 (20:46→23:36)
[2018-07-11] MEDS ORDERED: ALBUTEROL NEB 2.5 MG/3 ML INH STA (20:46)
--- NOTE | 2018-07-11 21:28 | XRAY Report ---
Reason: dyspnea and cough Procedure Date: 07/11/2018 Accession Number: [id number] / [id number] Procedure: XR - Chest 2 View X-Ray CPT Code: 20885 FULL RESULT: EXAM: CHEST RADIOGRAPHY EXAM DATE: 07/11/2018 08:52 PM. CLINICAL HISTORY: Dyspnea and cough. COMPARISON: Chest CT 04/08/2018. TECHNIQUE: 2 views. FINDINGS: Lungs/Pleura: No consolidation, pleural effusion or pneumothorax. Mediastinum: Borderline cardiomegaly. Tortuous descending thoracic aorta. Port-A-Cath central line with the tip at the upper superior vena cava. IMPRESSION: No acute findings are seen. See above. RADIA
[2018-07-11 21:45] LABS: BASOPHILS % (AUTO) 0.5 %; EOSINOPHILS # (AUTO) 0.1 10^3/uL (0.0-0.7); EOSINOPHILS % (AUTO) 1.7 %; LYMPHOCYTES # (AUTO) 0.9 10^3/uL (1.5-3.5); LYMPHOCYTES % (AUTO) 21.4 %; MEAN CORPUSCULAR HEMOGLOBIN 35.2 pg (27.0-31.0); MEAN CORPUSCULAR HGB CONC 34.5 g/dL (32.0-36.0); MEAN CORPUSCULAR VOLUME 101.8 fL (81.0-99.0); MONOCYTES % (AUTO) 24.2 %; NEUTROPHILS # (AUTO) 2.1 10^3/uL (1.5-6.6); NEUTROPHILS % (AUTO) 52.2 %; PLT - PLATELET COUNT 204 10^3/uL (130-450); RED BLOOD COUNT 2.84 10^6/uL (4.20-5.40); RED CELL DISTRIBUTION WIDTH 15.6 % (12.0-15.0); WHITE BLOOD COUNT 4.1 x10^3/uL (4.8-10.8)
[2018-07-11 21:50] LABS: ALBUMIN 4.1 g/dL (3.2-5.5); ALBUMIN/GLOBULIN RATIO 1.1 (1.0-2.2); BILIRUBIN,TOTAL 0.9 mg/dL (0.2-1.0); CALCIUM 9.5 mg/dL (8.5-10.3); CREATININE 1.4 mg/dL (0.4-1.0); MAGNESIUM 1.2 mg/dL (1.7-2.8); TOTAL PROTEIN 7.9 g/dL (6.7-8.2)
[2018-07-11 22:15] LABS: BILIRUBIN,URINE NEGATIVE (NEGATIVE); GLUCOSE, URINE (UA) NEGATIVE (NEGATIVE); KETONES,URINE (UA) NEGATIVE (NEGATIVE); LEUKOCYTE ESTERASE, URINE NEGATIVE (NEGATIVE); NITRITE,URINE NEGATIVE (NEGATIVE); OCCULT BLOOD,URINE NEGATIVE (NEGATIVE); PH,URINE 7.5 PH (5.0-7.5); PROTEIN,URINE 100 mg/dL (NEGATIVE); UROBILINOGEN,URINE 0.2 (NORMAL) E.U./dL (NORMAL)
[2018-07-11 22:23] LABS: BACTERIA,URINE None Seen /HPF (None Seen); CLARITY,URINE CLEAR (CLEAR); RBC,URINE None Seen /HPF (0-5); SQUAMOUS EPITHELIAL CELL,UR MOD Squamous (<= Few)
[2018-07-11] MEDS ORDERED: SODIUM CHLORIDE 0.9% 1,000 ML IV ONE (22:48)
[2018-07-11] MEDS ORDERED: SODIUM BICARBONATE ABBOJECT 50 MEQ/50 ML SYRINGE IVP STA (23:13)
[2018-07-11] MEDS ORDERED: ACETAMINOPHEN 325 MG TABLET PO STA (23:36)
[2018-07-11] MEDS ORDERED: IOPAMIDOL-300 100 ML VIAL ONE (23:38)
[2018-07-12] MEDS ORDERED: IOPAMIDOL-300 100 ML VIAL IVP ONE (01:02)
--- NOTE | 2018-07-12 01:34 | CT Report ---
Reason: dyspnea and chest discomfort; eleveated d-dimer Procedure Date: 07/12/2018 Accession Number: [id number] / [id number] Procedure: CT - Chest Angio (PE) CPT Code: FULL RESULT: EXAM: CT ANGIOGRAM CHEST EXAM DATE: 07/12/2018 01:04 AM. CLINICAL HISTORY: Dyspnea and chest discomfort; eleveated d-dimer. COMPARISON: CHEST W/O 04/08/2018 11:01 AM CHEST 2 VIEW 07/11/2018 8:52 PM. TECHNIQUE: Routine helical imaging was performed through the chest in the pulmonary arterial phase. IV Contrast: ISOVUE 300 60mL. Reconstructions: Coronal 3-D MIP reconstructions.Sagittal and coronal. In accordance with CT protocol optimization, one or more of the following dose reduction techniques were utilized for this exam: automated exposure control, adjustment of mA and/or KV based on patient size, or use of iterative reconstructive technique. FINDINGS: Pulmonary Arteries: Diagnostic quality: Adequate through the segmental arteries. No evidence for acute or chronic pulmonary emboli. RV/LV is within normal limits. There is no interventricular septal bowing. There is no reflux of contrast material in the IVC. Lungs/Pleura: Pulmonary vascular congestion and interstitial edema. Trace effusions. No pneumothorax or focal infiltrate. Mediastinum: Normal. No cardiac enlargement or adenopathy. Thoracic Aorta: Unremarkable. Upper Abdomen: Unremarkable. Other: None. IMPRESSION: No evidence of pulmonary embolus. Pulmonary vascular congestion and interstitial edema, compatible with congestive failure. RADIA
[2018-07-12] MEDS ORDERED: FUROSEMIDE 20 MG TABLET PO STA (01:50)
--- NOTE | 2018-07-12 01:53 | ED Physician Documentation ---
PD HPI DYSPNEA - Stated complaint Stated Complaint: NOT FEELING WELL - Chief complaint Chief Complaint: General - History obtained from History obtained from: Patient - History of Present Illness Timing - onset: How many weeks ago (1-2) Timing - onset during: Light activity Timing - details: Gradual onset, Still present, Waxing and waning Inciting event(s): Other (She has noticed herself having dyspnea and general malaise and feeling of weakness and notes her blood pressure to be quite elevated during those times. She was seen here in the ER couple of times related to high blood pressure. She did not have any adjustment in her medications that I can tell. The high blood pressure was attributed to the effect of the chemotherapy she is on for her ovarian cancer. She was having increased dyspnea and malaise the last day or so and comes back in for evaluation.). No: URI Improved by: Rest Worsened by: Exertion, Coughing. No: Laying flat Associated symptoms: Cough (mild nonproductive), Palpitations. No: Fever, Hemoptysis, Wheezing, Chest pain / discomfort, Bilateral edema Similar symptoms before: Has not had sx before Recently seen: Clinic ([facility] [place] clinic for chemo 3 weeks ago), Emergency Dept (4 days ago for high blood pressure and headache) Review of Systems Constitutional: denies: Fever, Chills Nose: denies: Rhinorrhea / runny nose, Congestion Throat: denies: Sore throat Cardiac: denies: Chest pain / pressure, Palpitations, Pedal edema, Calf pain Respiratory: reports: Dyspnea, Cough. denies: Wheezing GI: reports: Nausea. denies: Abdominal Pain, Vomiting : denies: Dysuria Neurologic: reports: Generalized weakness. 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 HEENT: Tonsil/Adenoidectomy - Present Medications Home Medications: Ambulatory Orders Medication Instructions Recorded Confirmed Carvedilol 6.25 mg PO BID 02/16/16 07/11/18 Losartan [Cozaar] 50 mg PO DAILY 02/16/16 07/11/18 Omeprazole [PriLOSEC] 20 mg PO DAILY 02/16/16 07/11/18 Cyanocobalamin (Vitamin B-12) 1,000 mcg PO DAILY 03/27/16 07/11/18 [B-12] Bupropion HCl [Wellbutrin Sr] 150 mg PO BID 04/02/16 07/11/18 Propylene Glycol/Peg 400 [Systane 2 drops EACHEYE TID 06/12/17 07/11/18 Ultra 0.4-0.3% Eye Drp] Dexamethasone [Decadron] 8 mg PO DAILY PRN MDD On Days 2, 02/06/18 07/11/18 3, 4 s/p chemo infu Cyclosporine [Restasis] 1 drops EACHEYE BID 04/16/18 07/11/18 predniSONE [Prednisone] 20 mg PO DAILY 06/18/18 07/11/18 Furosemide 20 mg PO DAILY #10 tablet 07/12/18 Magnesium Oxide [Mag Ox] 400 mg PO DAILY #10 tablet 07/12/18 - Allergies Allergies/Adverse Reactions: Allergies Allergy/AdvReac Type Severity Reaction Status Date / Time morphine Allergy Nausea Verified 07/11/18 20:38 tolterodine Allergy Unknown Verified 07/11/18 20:38 lansoprazole AdvReac Unknown Verified 07/11/18 20:38 lisinopril AdvReac Rash Verified 07/11/18 20:38 oxybutynin AdvReac Cramps Verified 07/11/18 20:38 ranitidine AdvReac Unknown Verified 07/11/18 20:38 simvastatin AdvReac Unknown Verified 07/11/18 20:38 - Social History Does the pt smoke?: No Smoking Status: Never smoker Does the pt drink ETOH?: No Does the pt have substance abuse?: No - Family History Family history: reports: Non contributory - Immunizations Immunizations are current?: Yes - POLST Patient has POLST: No PD ED PE NORMAL - Vitals Vital signs reviewed: Yes - General General: Alert and oriented X 3, No acute distress, Well developed/nourished - HEENT HEENT: Pharynx benign - Neck Neck: Supple, no meningeal sign, No adenopathy - Cardiac Cardiac: RRR (mild tachycardia), No murmur - Respiratory Respiratory: No respiratory distress. No: Clear bilaterally (no wheezes but has mild fine crackles at bases. ) - Abdomen Abdomen: Soft, Non tender - Female Female : Deferred - Rectal Rectal: Deferred - Back Back: No CVA TTP - Derm Derm: Normal color, Warm and dry - Extremities Extremities: No deformity, No tenderness to palpate, Normal ROM s pain, No edema, No calf tenderness / cord - Neuro Neuro: Alert and oriented X 3, counter maker 2-12 intact, No motor deficit, No sensory deficit, Normal speech Results - Vitals Vitals: Vital Signs - 24 hr 07/11/18 07/11/18 07/11/18 20:28 21:15 21:23 Temperature 36.7 C Heart Rate 116 H 111 H 109 H Respiratory 18 18 18 Rate Blood Pressure 187/125 H 187/121 H O2 Saturation 97 100 07/11/18 07/11/18 07/11/18 21:30 21:45 22:03 Temperature Heart Rate 93 94 98 Respiratory 16 22 19 Rate Blood Pressure 178/118 H 176/114 H 170/106 H O2 Saturation 95 95 96 07/11/18 07/11/18 07/11/18 22:10 22:40 23:20 Temperature Heart Rate 96 93 96 Respiratory 17 18 17 Rate Blood Pressure 177/116 H 159/109 H 176/117 H O2 Saturation 94 94 96 07/12/18 07/12/18 07/12/18 00:06 00:07 00:30 Temperature Heart Rate 90 88 Respiratory 19 24 Rate Blood Pressure 167/108 H 165/99 H O2 Saturation 90 L 94 99 07/12/18 07/12/18 07/12/18 01:07 01:22 02:01 Temperature 36.3 C L Heart Rate 93 87 88 Respiratory 16 23 20 Rate Blood Pressure 157/103 H 158/98 H 157/101 H O2 Saturation 94 94 95 07/12/18 07/12/18 02:18 02:53 Temperature Heart Rate 84 83 Respiratory 21 22 Rate Blood Pressure 153/93 H 153/95 H O2 Saturation 94 95 Oxygen O2 Source Nasal cannula Oxygen Flow Rate 2 - Labs Labs: Laboratory Tests 07/11/18 07/11/18 07/11/18 20:47 20:56 21:25 WBC 4.1 L RBC 2.84 L Hgb 10.0 L Hct 28.9 L MCV 101.8 H MCH 35.2 H MCHC 34.5 RDW 15.6 H Plt Count 204 MPV 7.0 L Neut # (Auto) 2.1 Lymph # (Auto) 0.9 L [place] # (Auto) 1.0 Eos # (Auto) 0.1 Baso # (Auto) 0.0 Absolute Nucleated RBC 0.00 Nucleated RBC % 0.0 D-Dimer Sodium Potassium Chloride Carbon Dioxide Anion Gap BUN Creatinine Estimated GFR (MDRD) Glucose Calcium Magnesium Total Bilirubin AST ALT Alkaline Phosphatase Troponin I B-Natriuretic Peptide 1056 H Total Protein Albumin Globulin Albumin/Globulin Ratio Lipase Urine Color YELLOW Urine Clarity CLEAR Urine pH 7.5 Ur Specific [place] 1.020 Urine Protein 100 H Urine Glucose (UA) NEGATIVE Urine Ketones NEGATIVE Urine Occult Blood NEGATIVE Urine Nitrite NEGATIVE Urine Bilirubin NEGATIVE Urine Urobilinogen 0.2 (NORMAL) Ur Leukocyte Esterase NEGATIVE Urine RBC None Seen Urine WBC 0-3 Ur Squamous Epith Cells MOD Squamous H Urine Bacteria None Seen Urine Culture Comments NOT INDICATED 07/11/18 07/11/18 07/11/18 21:25 21:25 21:25 WBC RBC Hgb Hct MCV MCH MCHC RDW Plt Count MPV Neut # (Auto) Lymph # (Auto) [place] # (Auto) Eos # (Auto) Baso # (Auto) Absolute Nucleated RBC Nucleated RBC % D-Dimer 433.0 H Sodium 133 L Potassium 3.9 Chloride 97 L Carbon Dioxide 23 Anion Gap 13.0 BUN 26 H Creatinine 1.4 H Estimated GFR (MDRD) 37 L Glucose 105 H Calcium 9.5 Magnesium 1.2 L Total Bilirubin 0.9 AST 23 ALT 15 Alkaline Phosphatase 73 Troponin I 0.05 B-Natriuretic Peptide Total Protein 7.9 Albumin 4.1 Globulin 3.8 Albumin/Globulin Ratio 1.1 Lipase 25 Urine Color Urine Clarity Urine pH Ur Specific [place] Urine Protein Urine Glucose (UA) Urine Ketones Urine Occult Blood Urine Nitrite Urine Bilirubin Urine Urobilinogen Ur Leukocyte Esterase Urine RBC Urine WBC Ur Squamous Epith Cells Urine Bacteria Urine Culture Comments - Rads (name of study) chest xray Radiology: Prelim report reviewed (no acute process) chest angio Radiology: Prelim report reviewed (no PE; interstitial fluid c/w CHF. ) PD MEDICAL DECISION MAKING - ED course Complexity details: reviewed old records, reviewed results, re-evaluated patient (She does feel better with her blood pressure down some. Her BNP is moderately elevated and her chest CT showed some interstitial fluid consistent with congestive failure. There is no signs of PEs. There are no tumors. I would presume her hypertension has led to some output failure and some mild CHF. We will increase her beta-nik dose and add a mild diuretic. She does not look sick enough to need to be hospitalized per se. She should discuss with her oncologist the chemotherapy if this is causing the hypertension.), considered differential, d/w patient Departure - Departure Disposition: Home, Self Care Clinical Impression: Dyspnea Qualifiers: Dyspnea type: shortness of breath Qualified Code(s): R06.02 - Shortness of breath Hypertension Qualifiers: Hypertension type: other secondary hypertension Qualified Code(s): I15.8 - Other secondary hypertension Condition: Stable Record reviewed to determine appropriate education?: Yes Instructions: ED Dyspnea Shortness of Breath Follow-Up: ANTONIA GODWIN [Primary Care Provider] - Prescriptions: Furosemide 20 mg PO DAILY #10 tablet Magnesium Oxide [Mag Ox] 400 mg PO DAILY #10 tablet Comments: I would increase your carvedilol from 6.25 mg twice a day to 12.5 mg twice a day. Add furosemide water pill daily for the next 5-7 days. Add magnesium supplement daily for a week. Follow-up with your primary care or oncology next week. Your CT scan and blood test suggest some fluid buildup in the lungs which may relate to the blood pressure being elevated and causing some pressure on the heart. We will see if the above medications help with that. There are no signs of blood clots or pneumonia or lung tumors.
[2018-07-12] MEDS ORDERED: MAGNESIUM SULFATE 2 GRAM 2 GM/50 ML BAG IV ONE (01:54)
[2018-07-12 03:59] VITALS: BP 155/93
== END 2018-07-12 04:10 | disposition home or self-care (01) ==
LOC: EDUNIT# → ED 20:28
DX: R06.02 Shortness of breath (principal); I10 Essential (primary) hypertension
CPT/HCPCS: 36415; 71046; 71275; 80053; 81001; 83690; 83735; 83880; 84484; 85025; 85379; 93005; 94640; 96361; 96365; 96375; 96376; 99284; 99285; A9270; Q9967; 87086

== ENCOUNTER 2018-07-14 12:38 | Emergency (ER) | payer MEDICARE, OTHER ==
--- NOTE | 2018-07-14 15:53 | XRAY Report ---
Reason: shortness of breath Procedure Date: 07/14/2018 Accession Number: [id number] / [id number] Procedure: XR - Chest 2 View X-Ray CPT Code: 58217 FULL RESULT: EXAM: CHEST RADIOGRAPHY. EXAM DATE: 07/14/2018 03:33 PM. CLINICAL HISTORY: Shortness of breath. COMPARISON: Chest 2 view 07/11/2018 8:52 PM, chest without 04/08/2018 11:01 AM. TECHNIQUE: 2 views. FINDINGS: Lungs/Pleura: Lung volumes are high with relative flattening of diaphragms, stable finding suggestive of obstructive lung disease. There is no focal consolidation or lung mass. No pneumothorax or pleural effusion is identified. Mediastinum: Stable cardiomediastinal silhouette. Other: Stable left subclavian port terminating in the region of the juncture of the SVC and innominate vein. IMPRESSION: Obstructive lung disease. No acute superimposed cardiopulmonary abnormality. RADIA
[2018-07-14 15:55] LABS: BASOPHILS % (AUTO) 0.8 %; EOSINOPHILS % (AUTO) 2.8 %; HGB - HEMOGLOBIN 9.4 g/dL (12.0-16.0); LYMPHOCYTES % (AUTO) 26.8 %; MEAN CORPUSCULAR HEMOGLOBIN 34.6 pg (27.0-31.0); MEAN CORPUSCULAR HGB CONC 34.1 g/dL (32.0-36.0); MEAN CORPUSCULAR VOLUME 101.4 fL (81.0-99.0); MEAN PLATELET VOLUME 7.2 fL (7.9-10.8); MONOCYTES % (AUTO) 23.7 %; NEUTROPHILS % (AUTO) 45.9 %; PLT - PLATELET COUNT 208 10^3/uL (130-450); RED BLOOD COUNT 2.71 10^6/uL (4.20-5.40); RED CELL DISTRIBUTION WIDTH 15.8 % (12.0-15.0)
[2018-07-14 16:02] LABS: ABNORMAL LYMPHS % (MANUAL) 0 %; BAND NEUTROPHILS % (MANUAL) 0 %
[2018-07-14 16:07] LABS: ALBUMIN 3.7 g/dL (3.2-5.5); ALBUMIN/GLOBULIN RATIO 0.9 (1.0-2.2); BILIRUBIN,TOTAL 0.8 mg/dL (0.2-1.0); CALCIUM 9.2 mg/dL (8.5-10.3); TOTAL PROTEIN 7.6 g/dL (6.7-8.2)
[2018-07-14 16:17] LABS: BASOPHILS % (MANUAL) 1 %; LYMPHOCYTES # (MANUAL) 1.1 10^3/uL (1.5-3.5); LYMPHOCYTES % (MANUAL) 27 %; MONOCYTES # (MANUAL) 0.8 10^3/uL (0.0-1.0); NEUTROPHILS % (MANUAL) 50 %
[2018-07-14 16:19] LABS: DIFFERENTIAL COMMENT MANUAL DIFFERENTIAL; PLATELET ESTIMATE, MANUAL NORMAL (130-450,000) (NORMAL); PLATELET MORPHOLOGY NORMAL APPEARANCE (NORMAL)
--- NOTE | 2018-07-14 16:39 | ED Physician Documentation ---
PD HPI DYSPNEA - Stated complaint Stated Complaint: DIFF BREATHING - Chief complaint Chief Complaint: Resp - History obtained from History obtained from: Patient - History of Present Illness Timing - onset: Other (This is a very pleasant 78-year-old woman undergoing treatment for ovarian cancer presents with dry cough for a week and increasing shortness of breath. She was seen here 2 nights ago and had a CT and lab work demonstrating no PE, she did have evidence of mild CHF and was treated with Lasix. She had a fever of 100 even 2 nights ago but not since. She continues to have a dry nonproductive cough. 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 : None HEENT: None Psych: Depression Musculoskeletal: Osteoarthritis Derm: Rosacea Other Past Medical History: cardiomyopathy - Past Surgical History Past Surgical History: Yes Ortho: Hip replacement, Knee replacement /DRY KILN LOADER: Hysterectomy HEENT: Tonsil/Adenoidectomy - Present Medications Home Medications: Ambulatory Orders Medication Instructions Recorded Confirmed Carvedilol 6.25 mg PO BID 02/16/16 07/11/18 Losartan [Cozaar] 50 mg PO DAILY 02/16/16 07/11/18 Omeprazole [PriLOSEC] 20 mg PO DAILY 02/16/16 07/11/18 Cyanocobalamin (Vitamin B-12) 1,000 mcg PO DAILY 03/27/16 07/11/18 [B-12] Bupropion HCl [Wellbutrin Sr] 150 mg PO BID 04/02/16 07/11/18 Propylene Glycol/Peg 400 [Systane 2 drops EACHEYE TID 06/12/17 07/11/18 Ultra 0.4-0.3% Eye Drp] Dexamethasone [Decadron] 8 mg PO DAILY PRN MDD On Days 2, 02/06/18 07/11/18 3, 4 s/p chemo infu Cyclosporine [Restasis] 1 drops EACHEYE BID 04/16/18 07/11/18 predniSONE [Prednisone] 20 mg PO DAILY 06/18/18 07/11/18 Furosemide 20 mg PO DAILY #10 tablet 07/12/18 Magnesium Oxide [Mag Ox] 400 mg PO DAILY #10 tablet 07/12/18 Albuterol Sulf [Ventolin Hfa 1 - 2 puffs INH Q4HR PRN #1 inhaler 07/14/18 Inhaler] Amoxicillin 500 mg PO TID #30 capsule 07/14/18 predniSONE [Prednisone] 60 mg PO DAILY 5 Days #15 tablet 07/14/18 - Allergies Allergies/Adverse Reactions: Allergies Allergy/AdvReac Type Severity Reaction Status Date / Time morphine Allergy Nausea Verified 07/14/18 12:48 tolterodine Allergy Unknown Verified 07/14/18 12:48 lansoprazole AdvReac Unknown Verified 07/14/18 12:48 lisinopril AdvReac Rash Verified 07/14/18 12:48 oxybutynin AdvReac Cramps Verified 07/14/18 12:48 ranitidine AdvReac Unknown Verified 07/14/18 12:48 simvastatin AdvReac Unknown Verified 07/14/18 12:48 - Social History Does the pt smoke?: No Smoking Status: Former smoker Does the pt drink ETOH?: No Does the pt have substance abuse?: No - Immunizations Immunizations are current?: Yes - POLST Patient has POLST: No PD ED PE NORMAL - Vitals Vital signs reviewed: Yes - General General: Alert and oriented X 3, No acute distress - HEENT HEENT: PERRL, EOMI - Neck Neck: Supple, no meningeal sign, No bony TTP, No JVD - Cardiac Cardiac: RRR, No murmur - Respiratory Respiratory: No respiratory distress, Other (Rhonchorous at the bases) - Abdomen Abdomen: Non tender - Extremities Extremities: No edema, No calf tenderness / cord - Neuro Neuro: Alert and oriented X 3, Normal speech - Psych Psych: Normal mood, Normal affect Results - Vitals Vitals: Vital Signs - 24 hr 07/14/18 07/14/18 07/14/18 12:42 14:02 16:16 Temperature 36.3 C L 36.2 C L 36.5 C Heart Rate 82 77 76 Respiratory 20 18 24 Rate Blood Pressure 110/66 118/64 152/98 H O2 Saturation 95 96 98 Oxygen O2 Source Room air - Labs Labs: Laboratory Tests 07/14/18 07/14/18 07/14/18 15:47 15:47 15:47 WBC 4.0 L RBC 2.71 L Hgb 9.4 L Hct 27.5 L MCV 101.4 H MCH 34.6 H MCHC 34.1 RDW 15.8 H Plt Count 208 MPV 7.2 L Neut # (Auto) Not Reportable Lymph # (Auto) Not Reportable [place] # (Auto) Not Reportable Eos # (Auto) Not Reportable Baso # (Auto) Not Reportable Absolute Nucleated RBC Not Reportable Total Counted 100 Band Neuts % (Manual) 0 Abnorm Lymph % (Manual) 0 Nucleated RBC % Not Reportable Neutrophils # (Manual) 2.0 Lymphocytes # (Manual) 1.1 L Monocytes # (Manual) 0.8 Eosinophils # (Manual) 0.0 Basophils # (Manual) 0.0 Differential Comment MANUAL DIFFERENTIAL Manual Slide Review Indicated WBC Morphology NORMAL APPEARANCE Platelet Estimate NORMAL (130-450,000) Platelet Morphology NORMAL APPEARANCE RBC Morph Micro Appear 1+ POLYCHROMASIA Sodium 133 L Potassium 3.5 Chloride 97 L Carbon Dioxide 24 Anion Gap 12.0 BUN 39 H Creatinine 2.0 H Estimated GFR (MDRD) 24 L Glucose 100 Calcium 9.2 Total Bilirubin 0.8 AST 22 ALT 12 Alkaline Phosphatase 73 Troponin I 0.04 B-Natriuretic Peptide Total Protein 7.6 Albumin 3.7 Globulin 3.9 Albumin/Globulin Ratio 0.9 L Lipase 34 07/14/18 15:47 WBC RBC Hgb Hct MCV MCH MCHC RDW Plt Count MPV Neut # (Auto) Lymph # (Auto) [place] # (Auto) Eos # (Auto) Baso # (Auto) Absolute Nucleated RBC Total Counted Band Neuts % (Manual) Abnorm Lymph % (Manual) Nucleated RBC % Neutrophils # (Manual) Lymphocytes # (Manual) Monocytes # (Manual) Eosinophils # (Manual) Basophils # (Manual) Differential Comment Manual Slide Review WBC Morphology Platelet Estimate Platelet Morphology RBC Morph Micro Appear Sodium Potassium Chloride Carbon Dioxide Anion Gap BUN Creatinine Estimated GFR (MDRD) Glucose Calcium Total Bilirubin AST ALT Alkaline Phosphatase Troponin I B-Natriuretic Peptide 464 H Total Protein Albumin Globulin Albumin/Globulin Ratio Lipase - Rads (name of study) 2v chest Radiology: EMP read contemporaneously (Obstructive lung disease, otherwise clear) PD MEDICAL DECISION MAKING - ED course ED course: This is a 78-year-old woman in cancer with chemotherapy presents with nonproductive cough and shortness of breath as well as a low-grade fever the other night. CT the other night showed evidence of some fluid overload and obstructive lung disease. She carries no previous diagnosis of COPD etc. but she probably does have some underlying component of this. She was a smoker in the past. The remainder of her workup shows improved white count, normal vital signs. Seems like a COPD exacerbation. Given the elevation in renal function over her baseline advised to stop the Lasix and we will give her some steroids, albuterol, and antibiotics. Departure - Departure Disposition: 01 Home, Self Care Clinical Impression: Acute renal injury, COPD exacerbation Condition: Good Record reviewed to determine appropriate education?: Yes Instructions: COPD Dc Prescriptions: Albuterol Sulf [Ventolin Hfa Inhaler] 1 - 2 puffs INH Q4HR PRN #1 inhaler PRN Reason: Shortness Of Air/Wheezing Amoxicillin 500 mg PO TID #30 capsule predniSONE [Prednisone] 60 mg PO DAILY 5 Days #15 tablet Comments: As discussed, stop the furosemide, it seems like it is decreased your kidney function a little bit. Follow-up with Dr. Perry as scheduled this week, asked her to recheck your kidney function. Return for new or worsening symptoms.
[2018-07-14] MEDS ORDERED: ALBUTEROL NEB 2.5 MG/3 ML INH STA (16:42)
[2018-07-14] MEDS ORDERED: AMOXICILLIN 250 MG CAPSULE PO STA (16:42)
[2018-07-14] MEDS ORDERED: predniSONE 20 MG TABLET PO STA (16:42)
[2018-07-14 17:07] VITALS: BP 154/95
== END 2018-07-14 17:16 | disposition home or self-care (01) ==
LOC: ED 12:38
DX: J44.1 Chronic obstructive pulmonary disease with (acute) exacerbation (principal); N17.9 Acute kidney failure, unspecified; I10 Essential (primary) hypertension; Z87.891 Personal history of nicotine dependence; C56.9 Malignant neoplasm of unspecified ovary; Z79.899 Other long term (current) drug therapy
CPT/HCPCS: 36415; 71046; 80053; 83690; 83880; 84484; 85025; 94640; 99283; 99284; A9270; J7512; 94664

== ENCOUNTER 2018-10-17 20:51 | Emergency (ER) | payer MEDICARE, OTHER ==
[2018-10-17 21:13] LABS: BILIRUBIN,URINE NEGATIVE (NEGATIVE); GLUCOSE, URINE (UA) NEGATIVE (NEGATIVE); KETONES,URINE (UA) NEGATIVE (NEGATIVE); LEUKOCYTE ESTERASE, URINE TRACE (NEGATIVE); NITRITE,URINE NEGATIVE (NEGATIVE); OCCULT BLOOD,URINE NEGATIVE (NEGATIVE); PH,URINE 7.5 PH (5.0-7.5); PROTEIN,URINE 30 mg/dL (NEGATIVE); UROBILINOGEN,URINE 0.2 (NORMAL) E.U./dL (NORMAL)
--- NOTE | 2018-10-17 21:18 | ED Physician Documentation ---
History of Present Illness - Stated complaint Stated Complaint: FEVER/ABD PX/SENT BY DOC - Chief complaint Chief Complaint: Abd Pain - History obtained from History obtained from: Patient - History of Present Illness Timing: How many weeks ago (1) Pain level max: 5 Pain level now: 5 - Additonal information Additional information: 78-year-old female presents to the emergency department with a complaint of fever. 101 degrees at home. She has recurrent ovarian cancer and is on chemotherapy, last chemotherapy was 2 weeks ago and she is scheduled to have chemotherapy on Saturday. Has lower abdominal pain and cramping. Feels like she has dysuria as well. Denies cough. States she has been tired. Does have anemia at baseline. No vomiting. Nothing makes it better or worse. She did talk to her oncologist who had her sent in for poss neutropenic fever evaluation Review of Systems Ten Systems: 10 systems reviewed and negative Constitutional: reports: Fever. 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 : None HEENT: None Psych: Depression Musculoskeletal: Osteoarthritis Derm: Rosacea - Past Surgical History Past Surgical History: Yes Ortho: Hip replacement, Knee replacement /TOOL GRINDER SET UP OPERATOR GEAR: Hysterectomy HEENT: Tonsil/Adenoidectomy - Present Medications Home Medications: Ambulatory Orders Medication Instructions Recorded Confirmed Carvedilol 6.25 mg PO BID 02/16/16 10/08/18 Losartan [Cozaar] 50 mg PO DAILY 02/16/16 10/08/18 Omeprazole [PriLOSEC] 20 mg PO DAILY 02/16/16 10/08/18 Cyanocobalamin (Vitamin B-12) 1,000 mcg PO DAILY 03/27/16 10/08/18 [B-12] Bupropion HCl [Wellbutrin Sr] 150 mg PO BID 04/02/16 10/08/18 Dexamethasone [Decadron] 8 mg PO DAILY PRN MDD On Days 2, 02/06/18 10/08/18 3, 4 s/p chemo infu Cyclosporine [Restasis] 1 drops EACHEYE BID 04/16/18 10/08/18 Furosemide 20 mg PO DAILY #10 tablet 07/12/18 10/08/18 Magnesium Oxide [Mag Ox] 400 mg PO DAILY #10 tablet 07/12/18 10/08/18 Albuterol Sulf [Ventolin Hfa 1 - 2 puffs INH Q4HR PRN #1 inhaler 07/14/18 10/08/18 Inhaler] Cephalexin [Keflex] 500 mg PO Q6H #28 capsule 10/17/18 - Allergies Allergies/Adverse Reactions: Allergies Allergy/AdvReac Type Severity Reaction Status Date / Time morphine Allergy Nausea Verified 07/14/18 12:48 tolterodine Allergy Unknown Verified 07/14/18 12:48 furosemide [From Lasix] AdvReac Unknown Verified 07/16/18 13:38 lansoprazole AdvReac Unknown Verified 07/14/18 12:48 lisinopril AdvReac Rash Verified 07/14/18 12:48 oxybutynin AdvReac Cramps Verified 07/14/18 12:48 ranitidine AdvReac Unknown Verified 07/14/18 12:48 simvastatin AdvReac Unknown Verified 07/14/18 12:48 - Social History Does the pt smoke?: No Smoking Status: Never smoker Does the pt drink ETOH?: No Does the pt have substance abuse?: No - Immunizations Immunizations are current?: Yes - POLST Patient has POLST: No PD ED PE NORMAL - Vitals Vital signs reviewed: Yes - General General: Alert and oriented X 3, No acute distress, Well developed/nourished - HEENT HEENT: PERRL, Ears normal, Moist mucous membranes, Pharynx benign - Neck Neck: Supple, no meningeal sign, No adenopathy - Cardiac Cardiac: RRR, No murmur, Strong equal pulses - Respiratory Respiratory: No respiratory distress, Clear bilaterally - Abdomen Abdomen: Soft, Non tender, Non distended - Back Back: No CVA TTP, No spinal TTP - Derm Derm: Warm and dry, No rash - Extremities Extremities: No edema, No calf tenderness / cord - Neuro Neuro: Alert and oriented X 3 - Psych Psych: Normal mood, Normal affect Results - Vitals Vitals: Vital Signs - 24 hr 02/01/19 02/01/19 02/01/19 20:55 21:12 21:13 Temperature 36.8 C Heart Rate 103 H 89 90 Respiratory 18 16 Rate Blood Pressure 174/97 H 163/97 H O2 Saturation 100 100 100 10/17/18 10/17/18 10/17/18 21:28 21:41 22:01 Temperature Heart Rate 90 91 Respiratory 16 16 16 Rate Blood Pressure 163/98 H 157/99 H O2 Saturation 100 98 Oxygen O2 Source Room air - Labs Labs: Laboratory Tests 10/17/18 10/17/18 10/17/18 21:02 21:10 21:30 WBC 9.3 RBC 2.51 L Hgb 8.6 L Hct 26.3 L MCV 104.7 H MCH 34.4 H MCHC 32.8 RDW 15.3 H Plt Count 125 L MPV 8.2 Neut # (Auto) 6.1 Lymph # (Auto) 1.9 [place] # (Auto) 1.3 H Eos # (Auto) 0.0 Baso # (Auto) 0.1 Absolute Nucleated RBC 0.00 Nucleated RBC % 0.0 Sodium Potassium Chloride Carbon Dioxide Anion Gap BUN Creatinine Estimated GFR (MDRD) Glucose Lactic Acid Calcium Total Bilirubin AST ALT Alkaline Phosphatase Total Protein Albumin Globulin Albumin/Globulin Ratio Lipase Urine Color YELLOW Urine Clarity HAZY Urine pH 7.5 Ur Specific [place] 1.020 Urine Protein 30 H Urine Glucose (UA) NEGATIVE Urine Ketones NEGATIVE Urine Occult Blood NEGATIVE Urine Nitrite NEGATIVE Urine Bilirubin NEGATIVE Urine Urobilinogen 0.2 (NORMAL) Ur Leukocyte Esterase TRACE H Urine RBC 0-5 Urine WBC >25 H Ur Squamous Epith Cells RARE Squamous Urine Bacteria Many H Ur Microscopic Review INDICATED Urine Culture Comments INDICATED Influenza A (Rapid) Negative Influenza B (Rapid) Negative 10/17/18 10/17/18 21:30 21:30 WBC RBC Hgb Hct MCV MCH MCHC RDW Plt Count MPV Neut # (Auto) Lymph # (Auto) [place] # (Auto) Eos # (Auto) Baso # (Auto) Absolute Nucleated RBC Nucleated RBC % Sodium 133 L Potassium 3.8 Chloride 99 L Carbon Dioxide 23 Anion Gap 11.0 BUN 27 H Creatinine 1.6 H Estimated GFR (MDRD) 31 L Glucose 95 Lactic Acid 0.8 Calcium 9.2 Total Bilirubin 0.7 AST 17 ALT 11 Alkaline Phosphatase 74 Total Protein 8.5 H Albumin 3.9 Globulin 4.6 H Albumin/Globulin Ratio 0.8 L Lipase 33 Urine Color Urine Clarity Urine pH Ur Specific [place] Urine Protein Urine Glucose (UA) Urine Ketones Urine Occult Blood Urine Nitrite Urine Bilirubin Urine Urobilinogen Ur Leukocyte Esterase Urine RBC Urine WBC Ur Squamous Epith Cells Urine Bacteria Ur Microscopic Review Urine Culture Comments Influenza A (Rapid) Influenza B (Rapid) - Rads (name of study) cxr Radiology: Prelim report reviewed, EMP read contemporaneously, See rad report (no acute disease) PD MEDICAL DECISION MAKING - ED course Complexity details: reviewed results, re-evaluated patient, considered differential, d/w patient, d/w family ED course: 78-year-old female with what appears to be a UTI. She is not septic. Blood cultures were drawn. She is not neutropenic. Negative influenza swab. Negat melvin chest x-ray. Normal lactate. Given Rocephin IV and will place on Keflex for home for UTI. She is very well-appearing, nontoxic. Afebrile. Patient counseled regarding signs and symptoms for which I believe and urgent re- evaluation would be necessary. Patient with good understanding of and agreement to plan and is comfortable going home at this time This document was made in part using voice recognition software. While efforts are made to proofread this document, sound alike and grammatical errors may occur. Departure - Departure Disposition: 01 Home, Self Care Clinical Impression: UTI (urinary tract infection) Qualifiers: Urinary tract infection type: acute cystitis Hematuria presence: without hematuria Qualified Code(s): N30.00 - Acute cystitis without hematuria Condition: Good Instructions: ED UTI Cystitis Female Follow-Up: Bette Perry MD [Primary Care Provider] - Within 1 week Prescriptions: Cephalexin [Keflex] 500 mg PO Q6H #28 capsule Comments: Return if you worsen. Take all antibiotics until gone. Discharge Date/Time: 10/17/18 22:29
[2018-10-17 21:21] LABS: CLARITY,URINE HAZY (CLEAR)
[2018-10-17 21:22] LABS: BACTERIA,URINE Many /HPF (None Seen); RBC,URINE 0-5 /HPF (0-5); SQUAMOUS EPITHELIAL CELL,UR RARE Squamous (<= Few)
[2018-10-17 21:35] LABS: BASOPHILS # (AUTO) 0.1 10^3/uL (0.0-0.1); BASOPHILS % (AUTO) 0.6 %; EOSINOPHILS % (AUTO) 0.3 %; HGB - HEMOGLOBIN 8.6 g/dL (12.0-16.0); LYMPHOCYTES # (AUTO) 1.9 10^3/uL (1.5-3.5); LYMPHOCYTES % (AUTO) 20.4 %; MEAN CORPUSCULAR HEMOGLOBIN 34.4 pg (27.0-31.0); MEAN CORPUSCULAR HGB CONC 32.8 g/dL (32.0-36.0); MEAN CORPUSCULAR VOLUME 104.7 fL (81.0-99.0); MEAN PLATELET VOLUME 8.2 fL (7.9-10.8); MONOCYTES # (AUTO) 1.3 10^3/uL (0.0-1.0); MONOCYTES % (AUTO) 13.5 %; NEUTROPHILS # (AUTO) 6.1 10^3/uL (1.5-6.6); NEUTROPHILS % (AUTO) 65.2 %; PLT - PLATELET COUNT 125 10^3/uL (130-450); RED BLOOD COUNT 2.51 10^6/uL (4.20-5.40); RED CELL DISTRIBUTION WIDTH 15.3 % (12.0-15.0); WHITE BLOOD COUNT 9.3 x10^3/uL (4.8-10.8)
[2018-10-17 21:48] LABS: ALBUMIN 3.9 g/dL (3.2-5.5); ALBUMIN/GLOBULIN RATIO 0.8 (1.0-2.2); BILIRUBIN,TOTAL 0.7 mg/dL (0.2-1.0); CALCIUM 9.2 mg/dL (8.5-10.3); CREATININE 1.6 mg/dL (0.4-1.0); TOTAL PROTEIN 8.5 g/dL (6.7-8.2)
[2018-10-17 22:03] VITALS: BP 157/99
[2018-10-17] MEDS ORDERED: cefTRIAXone 1 GM VIAL IVP STA (22:08)
--- NOTE | 2018-10-17 22:13 | XRAY Report ---
Reason: fever, on chemo Procedure Date: 10/17/2018 Accession Number: [id number] / [id number] Procedure: XR - Chest 2 View X-Ray CPT Code: 23340 FULL RESULT: EXAM: CHEST RADIOGRAPHY EXAM DATE: 10/17/2018 09:41 PM. CLINICAL HISTORY: Fever, on chemo. COMPARISON: CHEST 2 VIEW 07/14/2018 3:24 PM. TECHNIQUE: 2 views. FINDINGS: Lungs/Pleura: Large lung volumes. No alveolar consolidation or pleural effusion seen. No pneumothorax. Mediastinum: Heart size normal to upper normal. Tortuous aorta. Other: Osteopenia. Left-sided PowerPort with the tip in the upper SVC. IMPRESSION: 1. No focal consolidation seen. RADIA
== END 2018-10-17 22:29 | disposition home or self-care (01) ==
LOC: ED 20:51
DX: N30.00 Acute cystitis without hematuria (principal); I10 Essential (primary) hypertension; C56.9 Malignant neoplasm of unspecified ovary; Z92.21 Personal history of antineoplastic chemotherapy; Z96.649 Presence of unspecified artificial hip joint; Z96.659 Presence of unspecified artificial knee joint
CPT/HCPCS: 36415; 71046; 80053; 81001; 81003; 83605; 83690; 85025; 87040; 87086; 87275; 87276; 96374; 99283; 99284

== ENCOUNTER 2018-11-14 12:06 | Outpatient (CLI) | payer MEDICARE, OTHER ==
--- NOTE | 2018-11-14 12:32 | XRAY Report ---
Reason: PNEUMONIA Procedure Date: 11/14/2018 Accession Number: [id number] / [id number] Procedure: XR - Chest 2 View X-Ray CPT Code: 87601 FULL RESULT: EXAM: CHEST RADIOGRAPHY EXAM DATE: 11/14/2018 12:11 PM. CLINICAL HISTORY: PNEUMONIA. COMPARISON: CHEST 2 VIEW 10/17/2018 9:30 PM. TECHNIQUE: 2 views. FINDINGS: Lungs/Pleura: No focal opacities evident. No pleural effusion. No pneumothorax. Normal volumes. Mediastinum: Stable cardiomediastinal silhouette including aortic arch calcifications. Other: Left subclavian approach central venous port with its tip in the region of the juncture of the SVC and left brachiocephalic veins. The bones are qualitatively osteopenic; this limits evaluation for underlying fractures or masses. IMPRESSION: No pneumonia is detected. RADIA
== END 2018-11-14 12:07 | disposition home or self-care (01) ==
LOC: DI 12:06
PROVIDERS: ATTEND Specialist
DX: J18.9 Pneumonia, unspecified organism (principal)
CPT/HCPCS: 71046

== ENCOUNTER 2018-11-27 13:42 | Outpatient (CLI) | payer MEDICARE, OTHER ==
[2018-11-27] MEDS ORDERED: IOTHALAMATE MEGLUMINE 50 ML VIAL IVP ONE (14:52)
--- NOTE | 2018-11-27 17:02 | XRAY Report ---
Reason: OVARIAN CA-OBSTRUCTED PORT Procedure Date: 11/27/2018 Accession Number: [id number] / [id number] Procedure: FL - Fluoro Independent Procedure CPT Code: FULL RESULT: EXAM: FLUOROSCOPIC GUIDANCE EXAM DATE: 11/27/2018 02:49 PM. CLINICAL HISTORY: OVARIAN CA-OBSTRUCTED PORT. COMPARISON: CHEST 2 VIEW 11/14/2018 12:10 PM. FINDINGS: Total of 5 cc of Conray 60 were injected through indwelling port which was previously accessed. The port is normally patent with free spill into the SVC. IMPRESSION: Fluoroscopic guidance provided for left port check. Total fluoroscopy time: 32 seconds. Number of images: 3. RADIA
== END 2018-11-27 13:43 | disposition home or self-care (01) ==
LOC: DI 13:42
PROVIDERS: ATTEND Nurse Practitioner Adult Health
DX: Z45.2 Encounter for adjustment and management of vascular access device (principal); C56.9 Malignant neoplasm of unspecified ovary
CPT/HCPCS: 76000

== ENCOUNTER 2018-12-29 10:28 | Outpatient (CLI) | payer MEDICARE, OTHER | END 2018-12-29 10:29 | disposition home or self-care (01) | LOC: LAB.F 10:28 | PROVIDERS: ATTEND Urology | DX: N39.41 Urge incontinence (principal) | CPT/HCPCS: 87086 ==

== ENCOUNTER 2019-01-30 18:36 | Inpatient (IN) | payer MEDICARE, OTHER ==
[2019-01-30] MEDS ORDERED: SODIUM CHLORIDE 0.9% 1,000 ML IV ONE ×2 (18:56→19:44)
--- NOTE | 2019-01-30 18:58 | ED Physician Documentation ---
PD HPI ABD PAIN - Stated complaint Stated Complaint: DIARRHEA - Chief complaint Chief Complaint: Abd Pain - History obtained from History obtained from: Patient - History of Present Illness Timing - onset: Other (This is a 78-year-old woman with metastatic ovarian cancer. She last week got the first infusion of ininotecan and shortly thereafter has had diarrhea which has been persistent ever since. It is without blood. She has some mild lower abdominal pain. She is mildly nauseous but has not vomited. She denies fevers, sick contacts or recent antibiotic use. 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 HEENT: None Psych: Depression Musculoskeletal: Osteoarthritis Derm: Rosacea - Past Surgical History Past Surgical History: Yes Ortho: Hip replacement, Knee replacement /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: Hysterectomy HEENT: Tonsil/Adenoidectomy - Present Medications Home Medications: Ambulatory Orders Medication Instructions Recorded Confirmed Carvedilol 6.25 mg PO BID 02/16/16 01/14/19 Losartan [Cozaar] 50 mg PO DAILY 02/16/16 01/14/19 Omeprazole [PriLOSEC] 20 mg PO DAILY 02/16/16 01/14/19 Cyanocobalamin (Vitamin B-12) 1,000 mcg PO DAILY 03/27/16 01/14/19 [B-12] Bupropion HCl [Wellbutrin Sr] 150 mg PO BID 04/02/16 01/14/19 Cyclosporine [Restasis] 1 drops EACHEYE BID 04/16/18 01/14/19 Albuterol Sulf [Ventolin Hfa 1 - 2 puffs INH Q4HR PRN #1 inhaler 07/14/18 01/14/19 Inhaler] Furosemide 20 mg PO DAILY 11/19/18 01/14/19 Diphenoxylate/Atropine [Lomotil] 1 each PO DAILY PRN MDD 8 tabs 01/28/19 01/28/19 - Allergies Allergies/Adverse Reactions: Allergies Allergy/AdvReac Type Severity Reaction Status Date / Time morphine Allergy Nausea Verified 01/07/19 10:19 tolterodine Allergy Unknown Verified 01/07/19 10:19 furosemide [From Lasix] AdvReac Unknown Verified 01/07/19 10:19 lansoprazole AdvReac Unknown Verified 01/07/19 10:19 lisinopril AdvReac Rash Verified 01/07/19 10:19 oxybutynin AdvReac Cramps Verified 01/07/19 10:19 ranitidine AdvReac Unknown Verified 01/07/19 10:19 simvastatin AdvReac Unknown Verified 01/07/19 10:19 - Social History Does the pt smoke?: No Smoking Status: Never smoker Does the pt drink ETOH?: No Does the pt have substance abuse?: No - Family History Family history: reports: Non contributory - Immunizations Immunizations are current?: Yes - POLST Patient has POLST: No PD ED PE NORMAL - Vitals Vital signs reviewed: Yes - General General: Alert and oriented X 3, No acute distress - HEENT HEENT: PERRL, EOMI - Neck Neck: Supple, no meningeal sign, No bony TTP - Cardiac Cardiac: RRR, No murmur - Respiratory Respiratory: No respiratory distress, Clear bilaterally - Abdomen Abdomen: Soft, Non tender, Other (Firm abdomen which she says is her baseline from widely metastatic disease, multiple masses noted.) - Back Back: No CVA TTP, No spinal TTP - Derm Derm: Normal color - Extremities Extremities: No edema, No calf tenderness / cord - Neuro Neuro: Alert and oriented X 3, Normal speech - Psych Psych: Normal mood, Normal affect Results - Vitals Vitals: Vital Signs - 24 hr 01/30/19 01/30/19 18:44 18:55 Temperature 36.5 C 36.5 C Heart Rate 102 H 102 H Respiratory 16 16 Rate Blood Pressure 117/70 117/70 O2 Saturation 99 99 Oxygen O2 Source Room air - Labs Labs: Laboratory Tests 01/30/19 01/30/19 19:08 19:08 WBC 6.0 RBC 2.75 L Hgb 9.0 L Hct 27.9 L MCV 101.3 H MCH 32.8 H MCHC 32.4 RDW 17.1 H Plt Count 238 MPV 7.7 L Neut # (Auto) 3.5 Lymph # (Auto) 1.6 Lane # (Auto) 0.7 Eos # (Auto) 0.1 Baso # (Auto) 0.0 Absolute Nucleated RBC 0.00 Nucleated RBC % 0.0 Sodium 131 L Potassium 5.1 H Chloride 103 Carbon Dioxide 14 L Anion Gap 14.0 H BUN 70 H Creatinine 2.7 H Estimated GFR (MDRD) 17 L Glucose 102 H Calcium 9.2 Total Bilirubin 0.5 AST 28 ALT 20 Alkaline Phosphatase 237 H Total Protein 8.0 Albumin 3.4 Globulin 4.6 H Albumin/Globulin Ratio 0.7 L Lipase 28 PD MEDICAL DECISION MAKING - ED course ED course: This is a 78-year-old woman with ovarian cancer who presents with diarrhea likely related to her new chemotherapeutic agents. The diagnostics show that she has had significant renal injury from the diarrhea and dehydration, her baseline creatinine is about 1.6 and that is 2.7 and her baseline BUN is in the mid 30s and is now 70. She is treated with normal saline here and will need to be admitted for hydration and serial labs and I spoke with Dr. Smith for admission at 8:33 PM. Departure - Departure Disposition: ED Place in Observation Clinical Impression: Dehydration, Acute renal injury Condition: Stable
[2019-01-30 19:15] LABS: BASOPHILS % (AUTO) 0.1 %; EOSINOPHILS # (AUTO) 0.1 10^3/uL (0.0-0.7); EOSINOPHILS % (AUTO) 1.4 %; LYMPHOCYTES # (AUTO) 1.6 10^3/uL (1.5-3.5); LYMPHOCYTES % (AUTO) 27.7 %; MEAN CORPUSCULAR HEMOGLOBIN 32.8 pg (27.0-31.0); MEAN CORPUSCULAR HGB CONC 32.4 g/dL (32.0-36.0); MEAN CORPUSCULAR VOLUME 101.3 fL (81.0-99.0); MEAN PLATELET VOLUME 7.7 fL (7.9-10.8); MONOCYTES # (AUTO) 0.7 10^3/uL (0.0-1.0); MONOCYTES % (AUTO) 12.5 %; NEUTROPHILS # (AUTO) 3.5 10^3/uL (1.5-6.6); NEUTROPHILS % (AUTO) 58.3 %; PLT - PLATELET COUNT 238 10^3/uL (130-450); RED BLOOD COUNT 2.75 10^6/uL (4.20-5.40); RED CELL DISTRIBUTION WIDTH 17.1 % (12.0-15.0)
[2019-01-30 19:36] LABS: ALBUMIN 3.4 g/dL (3.2-5.5); ALBUMIN/GLOBULIN RATIO 0.7 (1.0-2.2); BILIRUBIN,TOTAL 0.5 mg/dL (0.2-1.0); CALCIUM 9.2 mg/dL (8.5-10.3); CREATININE 2.7 mg/dL (0.4-1.0)
[2019-01-30] MEDS ORDERED: SODIUM CHLORIDE FLUSH 0.9% 10 ML SYRINGE IVP PRN (22:03)
[2019-01-30] MEDS ORDERED: PROCHLORPERAZINE 10 MG/2 ML VIAL IVP PRN (22:07)
[2019-01-30] MEDS ORDERED: ONDANSETRON ODT 4 MG TABLET TL PRN (22:07)
[2019-01-30] MEDS ORDERED: SODIUM BICARBONATE ABBOJECT 50 MEQ/50 ML SYRINGE IVP STA (22:08)
--- NOTE | 2019-01-30 22:33 | HISTORY & PHYSICAL EXAMINATION ---
Chief Complaint - Chief Complaint Chief Complaint: Abdominal pain with associated diarrhea and weakness Abdominal Pain HPI - Admitted From Admitted from: ED - History Obtained From Records Reviewed: RN notes reviewed, Old records reviewed History obtained from: Patient, Family - History of Present Illness HPI Comment/Other: This is a 78-year-old woman with metastatic ovarian cancer (Liver involvement), Hypertension, Chronic kidney disease stage III, GERD, major depressive disorder, osteoarthritis who p/w to ED with non-bloody, non-mucoid diarrhea. Patient got her first infusion of Camptosar last week and shortly thereafter has had diarrhea With associated distention and generalized abdominal pain, which has been persistent ever since. She is mildly nauseous but has not vomited. She denies fevers, sick contacts or recent antibiotic use. She is been taking Imodium but it is insufficient. Upon further review on her labs patient's creati nine was 2.7, She was hyponatremic, potassium was slightly elevated at 5.1, CO2 14, BUN of 70, LFTs within normal limits with a normal lipase, alkaline phosphatase 237, hemoglobin 9.0 and macrocytosis noted. Patient likely is experiencing chemotherapy induced side effects and will be admitted for obvious for IV fluid resuscitation and electrolyte repletion. 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: Hysterectomy HEENT: positive: Tonsil/Adenoidectomy Social & Family Hx - Social History Does the pt smoke?: No Smoking Status: Never smoker Does the pt drink ETOH?: No Does the pt have substance abuse?: No - POLST Patient has POLST: No Meds/Allgy - Home Medications Home Medications: Ambulatory Orders Medication Instructions Recorded Confirmed Carvedilol 6.25 mg PO BID 02/16/16 01/14/19 Losartan [Cozaar] 50 mg PO DAILY 02/16/16 01/14/19 Omeprazole [PriLOSEC] 20 mg PO DAILY 02/16/16 01/14/19 Cyanocobalamin (Vitamin B-12) 1,000 mcg PO DAILY 03/27/16 01/14/19 [B-12] Bupropion HCl [Wellbutrin Sr] 150 mg PO BID 04/02/16 01/14/19 Cyclosporine [Restasis] 1 drops EACHEYE BID 04/16/18 01/14/19 Albuterol Sulf [Ventolin Hfa 1 - 2 puffs INH Q4HR PRN #1 inhaler 07/14/18 01/14/19 Inhaler] Furosemide 20 mg PO DAILY 11/19/18 01/14/19 Diphenoxylate/Atropine [Lomotil] 1 each PO DAILY PRN MDD 8 tabs 01/28/19 01/28/19 - Allergies Allergies/Adverse Reactions: Allergies Allergy/AdvReac Type Severity Reaction Status Date / Time morphine Allergy Nausea Verified 01/07/19 10:19 tolterodine Allergy Unknown Verified 01/07/19 10:19 furosemide [From Lasix] AdvReac Unknown Verified 01/07/19 10:19 lansoprazole AdvReac Unknown Verified 01/07/19 10:19 lisinopril AdvReac Rash Verified 01/07/19 10:19 oxybutynin AdvReac Cramps Verified 01/07/19 10:19 ranitidine AdvReac Unknown Verified 01/07/19 10:19 simvastatin AdvReac Unknown Verified 01/07/19 10:19 Review of Systems - All Other Systems All Other Systems: reports: Reviewed and negative Prior Level of Functionality: Patient has adequate home ADLs and functional capacity is within normal limits Exam - Vital Signs Vital Signs: Vital Signs x48h Temp Pulse Resp BP Pulse Ox 01/30/19 21:18 36.8 C 92 18 127/91 H 100 01/30/19 18:55 36.5 C 102 H 16 117/70 99 01/30/19 18:44 36.5 C 102 H 16 117/70 99 - Physical Exam General Appearance: positive: No acute distress, Alert, Other (Patient is ill- appearing and weak) Eyes Bilateral: positive: Normal inspection, PERRL, EOMI, Conjunctivae nml ENT: positive: ENT inspection nml, Pharynx nml, Dry mucous membranes. negative: Pharyngeal erythema, Oral lesions Neck: positive: Nml inspection, Thyroid nml, No JVD, Trachea midline. negative: Thyromegaly Respiratory: positive: Chest non-tender, No respiratory distress, Breath sounds nml Cardiovascular: positive: Regular rate & rhythm, No murmur, No gallop Peripheral Pulses: positive: 2+ Abdomen: positive: Non-tender, No organomegaly, Tenderness (All quadrants), Abnml bowel sounds (Hyperactive bowel sounds), Other (Abdominal distention noted). negative: Guarding, Rebound, Hepatomegaly, Splenomegaly, Mass Back: positive: Nml inspection Skin: positive: Color nml, No rash, Warm Extremities: positive: Non-tender, Full ROM, Nml appearance Neurologic/Psychiatric: positive: Oriented x3, CN's nml (2-12) Results - Lab Results Lab results reviewed: Yes Fish Bones: 01/30/19 19:08 01/30/19 19:08 Other Lab Results: Lab Results x24hrs 01/30/19 01/30/19 Range/Units 19:08 19:08 WBC 6.0 (4.8-10.8) x10^3/uL RBC 2.75 L (4.20-5.40) 10^6/uL Hgb 9.0 L (12.0-16.0) g/dL Hct 27.9 L (37.0-47.0) % MCV 101.3 H (81.0-99.0) fL MCH 32.8 H (27.0-31.0) pg MCHC 32.4 (32.0-36.0) g/dL RDW 17.1 H (12.0-15.0) % Plt Count 238 (130-450) 10^3/uL MPV 7.7 L (7.9-10.8) fL Neut # (Auto) 3.5 (1.5-6.6) 10^3/uL Lymph # (Auto) 1.6 (1.5-3.5) 10^3/uL [place] # (Auto) 0.7 (0.0-1.0) 10^3/uL Eos # (Auto) 0.1 (0.0-0.7) 10^3/uL Baso # (Auto) 0.0 (0.0-0.1) 10^3/uL Absolute Nucleated RBC 0.00 x10^3/uL Nucleated RBC % 0.0 /100WBC Sodium 131 L (135-145) mmol/L Potassium 5.1 H (3.5-5.0) mmol/L Chloride 103 (101-111) mmol/L Carbon Dioxide 14 L (21-32) mmol/L Anion Gap 14.0 H (6-13) BUN 70 H (6-20) mg/dL Creatinine 2.7 H (0.4-1.0) mg/dL Estimated GFR (MDRD) 17 L (>89) Glucose 102 H (70-100) mg/dL Calcium 9.2 (8.5-10.3) mg/dL Total Bilirubin 0.5 (0.2-1.0) mg/dL AST 28 (10-42) IU/L ALT 20 (10-60) IU/L Alkaline Phosphatase 237 H (42-121) IU/L Total Protein 8.0 (6.7-8.2) g/dL Albumin 3.4 (3.2-5.5) g/dL Globulin 4.6 H (2.1-4.2) g/dL Albumin/Globulin Ratio 0.7 L (1.0-2.2) Lipase 28 (22-51) U/L - EKG Results EKG Interpreted Independently: No Impression/Plan - Problem List Problem List: 1. Acute renal insufficiency superimposed on chronic kidney disease stage III Likely as a result of Camptosar first chemotherapy agent given last week. We will continue to provide perfusion to kidneys, avoid nephrotoxic agents, correct underlying electrolyte disturbances. 2. Chemo induced diarrhea with associated dehydration and electrolyte disturbance Will place on lactobacillus, Patient was on Imodium however with antidiarrheal such as low motel/Imodium on top of the fact that chemo induced diarrhea may precipitate a toxic megacolon we will hold off on these agents. Placed on clears for now. Stool cultures to follow. 3. Acute metabolic acidosis secondary to prerenal azotemia Likely as a result of patient's chemotherapy Camptosar. We will continue to provide IV fluid resuscitation, correction of underlying electrolyte disturbance. Will give 1 dose of sodium bicarb 50 mEq x 1. 4. Metastatic ovarian cancer with liver involvement status post first round of chemotherapy with Camptosar Patient is status post first chemotherapy. Patient's primary oncologist is Bette Perry. Patient to hold off on chemotherapy until diarrhea and electrolyte disturbance as well as acute renal insufficiency have abated. 5. Hypertension Patient is currently is normotensive and will defer off of bp meds for now. 6. Major depressive disorder Currently patient is ill-appearing as a result medical condition and not psychiatric illness and does not require to be placed on an SSRI for now 7. Anemia with macrocytosis Patient was on B12 vitamin supplementation. Will obtain folic acid, B12, iron studies, will defer on occult blood testing as patient has ovarian cancer and likely immunocompromised and would not introduce finger for occult testing. 8. Advance care education counseling Patient was explained on her medical conditions, trajectory of illness, plan of care. Patient chooses to be full code at this point. Patient is appropriate for palliative care consultation, to discuss further patient's ovarian cancer with metastatic process along with provider burden, psycho-social support, etc GI prophylaxis patient is allergic to H2 nik/PPI, Carafate p.o. twice daily for patient's GERD. DVT prophylaxis Lovenox 30 mg subcu daily (renal adjusted) 9. CODE STATUS full code Core Measures - Anticipated LOS I expect patient to be DC'd or transferred within 96 hours.: Yes - Issues Hospital Issues and Management Plan: IV fluid resuscitation with electrolyte repletion and supportive care - DVT/VTE - Prophylaxis VTE/DVT Device ordered at admit?: Yes VTE/DVT Prophylaxis med ordered at admit?: Yes - Stroke - Rehab Assessment Rehab services assessment to be ordered?: No Not Ordered - Medical Reason: Not indicated - AMI - Statin at Admit Aspirin Prescribed on Admit: No Not Ordered - Medical Reason: Not indicated
[2019-01-30] MEDS: DEXTROSE 5%-0.9% NACL 1,000 ML IV SCH (22:41)
[2019-01-30 22:54] LABS: MAGNESIUM 1.3 mg/dL (1.7-2.8)
[2019-01-30 22:59] LABS: FOLATE 10.71 ng/mL (5.90 - >24.8)
[2019-01-31] MEDS: SODIUM CHLORIDE FLUSH 0.9% 10 ML SYRINGE IVP SCH ×3 (01:37→19:29)
[2019-01-31] MEDS: DEXTROSE 5%-0.9% NACL 1,000 ML IV SCH ×3 (05:13→19:29)
[2019-01-31 06:05] LABS: BASOPHILS % (AUTO) 0.1 %; EOSINOPHILS # (AUTO) 0.1 10^3/uL (0.0-0.7); EOSINOPHILS % (AUTO) 1.7 %; HGB - HEMOGLOBIN 7.3 g/dL (12.0-16.0); LYMPHOCYTES # (AUTO) 1.2 10^3/uL (1.5-3.5); LYMPHOCYTES % (AUTO) 25.6 %; MEAN CORPUSCULAR HEMOGLOBIN 33.2 pg (27.0-31.0); MEAN CORPUSCULAR HGB CONC 33.2 g/dL (32.0-36.0); MEAN CORPUSCULAR VOLUME 100.1 fL (81.0-99.0); MEAN PLATELET VOLUME 7.8 fL (7.9-10.8); MONOCYTES # (AUTO) 0.6 10^3/uL (0.0-1.0); MONOCYTES % (AUTO) 13.7 %; NEUTROPHILS # (AUTO) 2.8 10^3/uL (1.5-6.6); NEUTROPHILS % (AUTO) 58.9 %; PLT - PLATELET COUNT 192 10^3/uL (130-450); RED BLOOD COUNT 2.21 10^6/uL (4.20-5.40); RED CELL DISTRIBUTION WIDTH 17.6 % (12.0-15.0); WHITE BLOOD COUNT 4.7 x10^3/uL (4.8-10.8)
[2019-01-31 06:17] LABS: ALBUMIN 2.6 g/dL (3.2-5.5); CALCIUM 8.2 mg/dL (8.5-10.3); PHOSPHORUS 3.7 mg/dL (2.5-4.6)
[2019-01-31] MEDS ORDERED: MAGNESIUM SULFATE 2 GM in SODIUM CHLORIDE 0.9% 50 ML IV ONE (06:32)
[2019-01-31] MEDS ORDERED: MAGNESIUM SULFATE 2 GRAM 2 GM/50 ML BAG IV ONE (08:00)
[2019-01-31] MEDS: SUCRALFATE 1 GM/10 ML UDC PO SCH ×2 (08:33→20:39)
[2019-01-31] MEDS: MAGNESIUM OXIDE 400 MG TABLET PO SCH (08:33)
[2019-01-31] MEDS: POLYETHYLENE GLYCOL 3350 17 GM PACKET PO SCH (08:33)
[2019-01-31] MEDS: ENOXAPARIN 30 MG/0.3 ML SYRINGE SUBQ SCH (08:33)
[2019-01-31] MEDS: LACTOBACILLUS RHAMNOSUS GG CAPSULE PO SCH (08:33)
[2019-01-31] MEDS: DIPHENOX/ATROPINE 2.5/0.025 MG TABLET PO PRN ×2 (09:53→18:48)
[2019-01-31] MEDS: AZITHROMYCIN INJ 500 MG in SODIUM CHLORIDE 0.9% 250 ML IV SCH (10:22)
[2019-01-31] MEDS ORDERED: LOPERAMIDE 2 MG CAPSULE PO PRN (10:29)
[2019-01-31] MEDS ORDERED: SODIUM CHLORIDE 0.9% 500 ML IV ONE (12:03)
[2019-01-31 12:27] LABS: HGB - HEMOGLOBIN 7.5 g/dL (12.0-16.0)
[2019-01-31] MEDS: traMADol 50 MG TABLET PO PRN ×2 (12:51→20:39)
[2019-01-31] MEDS ORDERED: MAGNESIUM SULFATE 1 GM in SODIUM CHLORIDE 0.9% 50 ML IV ONE (16:00)
[2019-01-31 16:50] LABS: HGB - HEMOGLOBIN 8.6 g/dL (12.0-16.0)
--- NOTE | 2019-01-31 16:52 | Discharge Plan ---
Discharge Plan Disposition: Home, Self Care Condition: Poor Prescriptions: traMADol [Ultram] 50 mg PO Q4HR PRN #20 tablet PRN Reason: Pain Azithromycin 500 mg PO DAILY #2 tablet Ferrous Sulfate 325 mg PO DAILY #15 tablet Magnesium Oxide [Mag Ox] 400 mg PO DAILYWM #15 tablet Diet: Regular Activity Restrictions: Activity as Tolerated Shower Restrictions: No (fall precaution) Instruction Topics: Tramadol tablets, Azithromycin tablets, Campylobacter Infec Additional Instructions or Follow Up instructions: you may followup your PCP in one week, followup your oncologist in your schedule. You is found to have camplylobacter in your stool, Azithyromycin is prescribed to you treat the infection. You is also found to have iron deficiency anemia, ferrous sulfate is prescribed to you. Magnesium oxide is prescribed to you for your low level of magnesium. Tramadol is prescribed for your abdominal pain. Should your symptoms return or worsen, you may present ER or call 911 or call your PCP for help. No Smoking: If you smoke, Please STOP! Call for help. Follow-up with: ANTONIA GODWIN [Primary Care Provider] -
--- NOTE | 2019-01-31 17:01 | DISCHARGE SUMMARY ---
Discharge Summary Discharge Date: 01/31/19 Discharging Provider: Leone Primary Care Provider: Condition at Discharge: Poor Discharge Facility Name: home - DIAGNOSES Admission Diagnoses: 1. Acute renal insufficiency superimposed on chronic kidney disease stage III 2. Chemo induced diarrhea with associated dehydration and electrolyte disturbance 3. Acute metabolic acidosis secondary to prerenal azotemia 4. Metastatic ovarian cancer with liver involvement status post first round of chemotherapy with Camptosar 5. Hypertension 6. Major depressive disorder 7. Anemia with macrocytosis 8. Advance care education counseling Discharge Diagnoses with Status of Each Condition: 1. Chemo induced diarrhea with associated dehydration and electrolyte disturba nce 2. Acute renal insufficiency superimposed on chronic kidney disease stage III, secondary to prerenal azotemia 3. Metastatic ovarian cancer with liver involvement status post first round of chemotherapy with Camptosar 4. Hypertension 5. Major depressive disorder 6. Anemia with macrocytosis 7, generalized weakness - HPI History of Present Illness: refer from Dr. Smith's HPI on 01/30/19 This is a 78-year-old woman with metastatic ovarian cancer (Liver involvement), Hypertension, Chronic kidney disease stage III, GERD, major depressive disorder, osteoarthritis who p/w to ED with non-bloody, non-mucoid diarrhea. Patient got her first infusion of Camptosar last week and shortly thereafter has had diarrhea With associated distention and generalized abdominal pain, which has been persistent ever since. She is mildly nauseous but has not vomited. She denies fevers, sick contacts or recent antibiotic use. She is been taking Imodium but it is insufficient. Upon further review on her labs patient's creatinine was 2.7, She was hyponatremic, potassium was slightly elevated at 5.1, CO2 14, BUN of 70, LFTs within normal limits with a normal lipase, alkaline phosphatase 237, hemoglobin 9.0 and macrocytosis noted. Patient likely is ex periencing chemotherapy induced side effects and will be admitted for obvious for IV fluid resuscitation and electrolyte repletion. - HOSPITAL COURSE Hospital Course: 1. Chemo induced diarrhea with associated dehydration and electrolyte disturbance better continue diarrhea. Camplylobacter is found in pt's stool. Azithyomycin is prescribed for another two days to control the infection Na and Potassium are corrected to normal. Mag is replaced and prescribed Mag oxide for home 2. Acute renal insufficiency superimposed on chronic kidney disease stage III, secondary to prerenal azotemia significant improved. Creatinine is 1.4 today from 2.7. advise pt keep hydration. 3. Metastatic ovarian cancer with liver involvement status post first round of chemotherapy with Camptosar followup her oncologist 4. Hypertension stable, continue home regimen 5. Major depressive disorder stable, continue home regimen 6. Anemia with macrocytosis pt had one unit of blood transfusion, she report she feel much better after transfusion. Her HGB is 8.5 stable now. pt also is found to have iron deficiency anemia. pt is prescribed iron pill 7, generalized weakness resolved. pt walk by herself, state she feel much better. - ALLERGIES Allergies/Adverse Reactions: Allergies Allergy/AdvReac Type Severity Reaction Status Date / Time morphine Allergy Nausea Verified 01/07/19 10:19 tolterodine Allergy Unknown Verified 01/07/19 10:19 furosemide [From Lasix] AdvReac Unknown Verified 01/07/19 10:19 lansoprazole AdvReac Unknown Verified 01/07/19 10:19 lisinopril AdvReac Rash Verified 01/07/19 10:19 oxybutynin AdvReac Cramps Verified 01/07/19 10:19 ranitidine AdvReac Unknown Verified 01/07/19 10:19 simvastatin AdvReac Unknown Verified 01/07/19 10:19 - MEDICATIONS Home Medications: Ambulatory Orders Medication Instructions Recorded Confirmed Carvedilol 6.25 mg PO BID 02/16/16 01/31/19 Losartan [Cozaar] 50 mg PO DAILY 02/16/16 01/31/19 Omeprazole [PriLOSEC] 20 mg PO DAILY 02/16/16 01/31/19 Cyanocobalamin (Vitamin B-12) 1,000 mcg PO DAILY 03/27/16 01/31/19 [B-12] Bupropion HCl [Wellbutrin Sr] 150 mg PO BID 04/02/16 01/31/19 Cyclosporine [Restasis] 1 drops EACHEYE BID 04/16/18 01/31/19 Albuterol Sulf [Ventolin Hfa 1 - 2 puffs INH Q4HR PRN #1 inhaler 07/14/18 01/31/19 Inhaler] Furosemide 20 mg PO DAILY 11/19/18 01/31/19 Diphenoxylate/Atropine [Lomotil] 1 each PO DAILY PRN MDD 8 tabs 01/28/19 01/31/19 Azithromycin 500 mg PO DAILY #2 tablet 01/31/19 Ferrous Sulfate 325 mg PO DAILY #15 tablet 01/31/19 Magnesium Oxide [Mag Ox] 400 mg PO DAILYWM #15 tablet 01/31/19 traMADol [Ultram] 50 mg PO Q4HR PRN #20 tablet 01/31/19 - PHYSICAL EXAM AT DISCHARGE General Appearance: positive: No acute distress, Alert. negative: Lethargic Eyes Bilateral: positive: Normal inspection, PERRL, No lid inflammation, Conjunctivae nml ENT: positive: ENT inspection nml, Pharynx nml, No signs of dehydration. negative: Purulent nasal drainage, Pharyngeal erythema, Oral lesions Neck: positive: Nml inspection, Thyroid nml, No JVD, Trachea midline. negative: Thyromegaly, Lymphadenopathy (R), Lymphadenopathy (L), Stiff neck, Swelling/bruising, Tracheal deviation Respiratory: positive: Chest non-tender, No respiratory distress, Breath sounds nml. negative: Wheezes, Rales, Rhonchi Cardiovascular: positive: Regular rate & rhythm, No murmur, No gallop. negative: Irregularly irregular, Extrasystoles, Tachycardia, Bradycardia, JVD present, Systolic murmur, Diastolic murmur Peripheral Pulses: positive: 2+ Abdomen: positive: Non-tender, No organomegaly, Nml bowel sounds, No distention. negative: Tenderness, Guarding, Rebound Back: positive: Nml inspection. negative: CVA tenderness (R), CVA tenderness (L) Skin: positive: Color nml, No rash, Warm, Dry. negative: Cyanosis, Diaphoresis, Pallor Extremities: positive: Non-tender, Full ROM, Nml appearance. negative: Calf tenderness, Joint swelling, Veronica's sign/cords Neurologic/Psychiatric: positive: Oriented x3, Motor nml, Sensation nml, Mood/affect nml. negative: Weakness, Sensory loss, Facial droop, Slurred/abnml speech, Depressed mood/affect - LABS Result Diagrams: 02/01/19 05:50 02/01/19 05:50 - FOLLOW UP Follow Up: you may followup your PCP in one week, followup your oncologist in your schedule. You is found to have camplylobacter in your stool, Azithyromycin is prescribed to you treat the infection. You is also found to have iron deficiency anemia, ferrous sulfate is prescribed to you. Magnesium oxide is prescribed to you for your low level of magnesium. Tramadol is prescribed for your abdominal pain. Should your symptoms return or worsen, you may present ER or call 911 or call your PCP for help. - TIME SPENT Time Spent in Discharge (Minutes): 50
--- NOTE | 2019-01-31 18:01 | PROVIDER PROGRESS NOTE ---
Subjective - Prog Note Date Prog Note Date: 01/31/19 - Subjective Pt reports feeling: Improved Subjective: pt report she feel better, she had one unit of blood transfused. but she report she still had diarrhea. she still feel generalized weakness. she report she is not safety discharged, she state her is dementia, and nobody take care of her yet. her son come to visit her on tomorrow. She denies fever,chill, chest pain. Current Medications - Current Medications Current Medications: Active Medications Diphenoxylate HCl/Atropine (Lomotil) 1 tab PO QID PRN PRN Reason: Diarrhea Last Admin: 01/31/19 09:53 Dose: 1 tab Enoxaparin Sodium (Lovenox) 30 mg SUBQ DAILY [facility] Last Admin: 01/31/19 08:33 Dose: 30 mg Ferrous Sulfate (Feosol) 325 mg PO BIDWM [facility] Dextrose/Sodium Chloride (D5ns) 1,000 mls @ 150 mls/hr IV .Q6H40M [facility] Last Admin: 01/31/19 16:42 Dose: 150 mls/hr Azithromycin 500 mg/ Sodium (Chloride) 250 mls @ 250 mls/hr IV DAILY [facility] Last Admin: 01/31/19 10:22 Dose: 250 mls/hr Lactobacillus Rhamnosus (Culturelle) 1 cap PO DAILY [facility] Last Admin: 01/31/19 08:33 Dose: 1 cap Magnesium Oxide (Mag Ox) 400 mg PO DAILYWM [facility] Last Admin: 01/31/19 08:33 Dose: 400 mg Ondansetron HCl (Zofran Odt) 4 mg TL Q6HR PRN PRN Reason: Nausea / Vomiting Polyethylene Glycol (Miralax) 17 gm PO DAILY [facility] Last Admin: 01/31/19 08:33 Dose: Not Given Prochlorperazine Edisylate (Compazine Inj) 10 mg IVP Q4HR PRN PRN Reason: Nausea / Vomiting Sodium Chloride (Normal Saline Flush 0.9%) 10 ml IVP PRN PRN PRN Reason: NEEDED PER PROVIDER ORDERS Sodium Chloride (Normal Saline Flush 0.9%) 10 ml IVP 0100,0900,1700 [facility] Last Admin: 01/31/19 08:34 Dose: Not Given Sucralfate (Carafate) 1 gm PO BID [facility] Last Admin: 01/31/19 08:33 Dose: 1 gm Tramadol HCl (Ultram) 50 mg PO Q4HR PRN PRN Reason: PAIN Last Admin: 01/31/19 12:51 Dose: 50 mg Carvedilol 6.25 mg PO BID 02/16/16 Losartan [Cozaar] 50 mg PO DAILY 02/16/16 Omeprazole [PriLOSEC] 20 mg PO DAILY 02/16/16 Cyanocobalamin (Vitamin B-12) [B-12] 1,000 mcg PO DAILY 03/27/16 Bupropion HCl [Wellbutrin Sr] 150 mg PO BID 04/02/16 Cyclosporine [Restasis] 1 drops EACHEYE BID 04/16/18 Furosemide 20 mg PO DAILY 11/19/18 Diphenoxylate/Atropine [Lomotil] 1 each PO DAILY PRN MDD 8 tabs 01/28/19 Objective - Vital Signs/Intake & Output Reviewed Vital Signs: Yes Vital Signs: Vital Signs x48h Temp Pulse Pulse Resp BP BP Pulse Ox 01/31/19 15:53 36.9 C 94 18 138/86 H 99 01/31/19 12:59 36.6 C 102 H 16 142/85 H 01/31/19 12:56 36.6 C 103 H 16 142/85 H 100 01/31/19 12:33 36.5 C 110 H 16 147/85 H Intake & Output: Intake & Output 01/28/19 01/29/19 01/30/19 01/31/19 23:59 23:59 23:59 23:59 Intake Total 1999 3352 Balance 1999 3352 - Objective General Appearance: positive: No acute distress, Alert. negative: Lethargic Eyes Bilateral: positive: Normal inspection, PERRL, No lid inflammation, Conjunctivae nml ENT: positive: ENT inspection nml, Pharynx nml, No signs of dehydration. negative: Purulent nasal drainage, Pharyngeal erythema, Oral lesions Neck: positive: Nml inspection, Thyroid nml, No JVD, Trachea midline. negative: Thyromegaly, Lymphadenopathy (R), Lymphadenopathy (L), Stiff neck, Swelling/bruising, Tracheal deviation Respiratory: positive: Chest non-tender, No respiratory distress, Breath sounds nml. negative: Wheezes, Rales, Rhonchi Cardiovascular: positive: Regular rate & rhythm, No murmur, No gallop. n egative: Irregularly irregular, Extrasystoles, Tachycardia, Bradycardia, JVD present, Systolic murmur, Diastolic murmur Peripheral Pulses: 2+ Radial (R), 2+ Radial (L), 2+ Dorsalis pedis (R), 2+ Dorsalis pedis (L) Abdomen: positive: Non-tender, No organomegaly, Nml bowel sounds, No distention. negative: Tenderness, Guarding, Rebound Back: positive: Nml inspection. negative: CVA tenderness (R), CVA tenderness (L) Skin: positive: Color nml, No rash, Warm, Dry. negative: Cyanosis, Diaphoresis, Pallor Extremities: positive: Non-tender, Nml appearance. negative: Calf tenderness, Joint swelling, Veronica's sign/cords Neurologic/Psychiatric: positive: Oriented x3, Sensation nml, Mood/affect nml. negative: Weakness, Sensory loss, Facial droop, Slurred/abnml speech, Depressed mood/affect - Lab Results Fish Bones: 01/31/19 16:40 01/31/19 05:35 Other Labs: Lab Results x24hrs 01/31/19 01/31/19 01/31/19 Range/Units 16:40 12:10 12:10 WBC (4.8-10.8) x10^3/uL RBC (4.20-5.40) 10^6/uL Hgb 8.6 L 7.5 L (12.0-16.0) g/dL Hct 25.5 L 23.1 L (37.0-47.0) % MCV (81.0-99.0) fL MCH (27.0-31.0) pg MCHC (32.0-36.0) g/dL RDW (12.0-15.0) % Plt Count (130-450) 10^3/uL MPV (7.9-10.8) fL Neut # (Auto) (1.5-6.6) 10^3/uL Lymph # (Auto) (1.5-3.5) 10^3/uL Ada # (Auto) (0.0-1.0) 10^3/uL Eos # (Auto) (0.0-0.7) 10^3/uL Baso # (Auto) (0.0-0.1) 10^3/uL Absolute Nucleated RBC x10^3/uL Nucleated RBC % /100WBC Sodium (135-145) mmol/L Potassium (3.5-5.0) mmol/L Chloride (101-111) mmol/L Carbon Dioxide (21-32) mmol/L Anion Gap (6-13) BUN (6-20) mg/dL Creatinine (0.4-1.0) mg/dL Estimated GFR (MDRD) (>89) Glucose (70-100) mg/dL Calcium (8.5-10.3) mg/dL Phosphorus (2.5-4.6) mg/dL Magnesium 1.5 L (1.7-2.8) mg/dL Iron (28-170) ug/dL TIBC (250-450) ug/dL % Saturation (20-50) % Transferrin (192-382) mg/dL Total Bilirubin (0.2-1.0) mg/dL AST (10-42) IU/L ALT (10-60) IU/L Alkaline Phosphatase (42-121) IU/L Total Protein (6.7-8.2) g/dL Albumin (3.2-5.5) g/dL Globulin (2.1-4.2) g/dL Albumin/Globulin Ratio (1.0-2.2) Lipase (22-51) U/L Vitamin B12 (180-914) pg/mL Folate (5.90 - >24.8) ng/mL Blood Type Antibody Screen Crossmatch IS Only 01/31/19 01/31/19 01/31/19 Range/Units 08:16 08:16 05:35 WBC (4.8-10.8) x10^3/uL RBC (4.20-5.40) 10^6/uL Hgb (12.0-16.0) g/dL Hct (37.0-47.0) % MCV (81.0-99.0) fL MCH (27.0-31.0) pg MCHC (32.0-36.0) g/dL RDW (12.0-15.0) % Plt Count (130-450) 10^3/uL MPV (7.9-10.8) fL Neut # (Auto) (1.5-6.6) 10^3/uL Lymph # (Auto) (1.5-3.5) 10^3/uL Ada # (Auto) (0.0-1.0) 10^3/uL Eos # (Auto) (0.0-0.7) 10^3/uL Baso # (Auto) (0.0-0.1) 10^3/uL Absolute Nucleated RBC x10^3/uL Nucleated RBC % /100WBC Sodium 136 (135-145) mmol/L Potassium 4.9 (3.5-5.0) mmol/L Chloride 112 H (101-111) mmol/L Carbon Dioxide 15 L (21-32) mmol/L Anion Gap 9.0 (6-13) BUN 58 H (6-20) mg/dL Creatinine 2.0 H (0.4-1.0) mg/dL Estimated GFR (MDRD) 24 L (>89) Glucose 101 H (70-100) mg/dL Calcium 8.2 L (8.5-10.3) mg/dL Phosphorus 3.7 (2.5-4.6) mg/dL Magnesium (1.7-2.8) mg/dL Iron (28-170) ug/dL TIBC (250-450) ug/dL % Saturation (20-50) % Transferrin (192-382) mg/dL Total Bilirubin (0.2-1.0) mg/dL AST (10-42) IU/L ALT (10-60) IU/L Alkaline Phosphatase (42-121) IU/L Total Protein (6.7-8.2) g/dL Albumin 2.6 L (3.2-5.5) g/dL Globulin (2.1-4.2) g/dL Albumin/Globulin Ratio (1.0-2.2) Lipase (22-51) U/L Vitamin B12 (180-914) pg/mL Folate (5.90 - >24.8) ng/mL Blood Type AB POSITIVE Cancelled Antibody Screen NEGATIVE Cancelled Crossmatch IS Only See Detail 01/31/19 01/30/19 01/30/19 Range/Units 05:35 19:08 19:08 WBC 4.7 L (4.8-10.8) x10^3/uL RBC 2.21 L (4.20-5.40) 10^6/uL Hgb 7.3 L (12.0-16.0) g/dL Hct 22.1 L (37.0-47.0) % MCV 100.1 H (81.0-99.0) fL MCH 33.2 H (27.0-31.0) pg MCHC 33.2 (32.0-36.0) g/dL RDW 17.6 H (12.0-15.0) % Plt Count 192 (130-450) 10^3/uL MPV 7.8 L (7.9-10.8) fL Neut # (Auto) 2.8 (1.5-6.6) 10^3/uL Lymph # (Auto) 1.2 L (1.5-3.5) 10^3/uL Ada # (Auto) 0.6 (0.0-1.0) 10^3/uL Eos # (Auto) 0.1 (0.0-0.7) 10^3/uL Baso # (Auto) 0.0 (0.0-0.1) 10^3/uL Absolute Nucleated RBC 0.00 x10^3/uL Nucleated RBC % 0.1 /100WBC Sodium (135-145) mmol/L Potassium (3.5-5.0) mmol/L Chloride (101-111) mmol/L Carbon Dioxide (21-32) mmol/L Anion Gap (6-13) BUN (6-20) mg/dL Creatinine (0.4-1.0) mg/dL Estimated GFR (MDRD) (>89) Glucose (70-100) mg/dL Calcium (8.5-10.3) mg/dL Phosphorus (2.5-4.6) mg/dL Magnesium 1.3 L (1.7-2.8) mg/dL Iron 26 L (28-170) ug/dL TIBC 182 L (250-450) ug/dL % Saturation 14 L (20-50) % Transferrin 130 L (192-382) mg/dL Total Bilirubin (0.2-1.0) mg/dL AST (10-42) IU/L ALT (10-60) IU/L Alkaline Phosphatase (42-121) IU/L Total Protein (6.7-8.2) g/dL Albumin (3.2-5.5) g/dL Globulin (2.1-4.2) g/dL Albumin/Globulin Ratio (1.0-2.2) Lipase (22-51) U/L Vitamin B12 2977 H (180-914) pg/mL Folate 10.71 (5.90 - >24.8) ng/mL Blood Type Antibody Screen Crossmatch IS Only 01/30/19 01/30/19 Range/Units 19:08 19:08 WBC 6.0 (4.8-10.8) x10^3/uL RBC 2.75 L (4.20-5.40) 10^6/uL Hgb 9.0 L (12.0-16.0) g/dL Hct 27.9 L (37.0-47.0) % MCV 101.3 H (81.0-99.0) fL MCH 32.8 H (27.0-31.0) pg MCHC 32.4 (32.0-36.0) g/dL RDW 17.1 H (12.0-15.0) % Plt Count 238 (130-450) 10^3/uL MPV 7.7 L (7.9-10.8) fL Neut # (Auto) 3.5 (1.5-6.6) 10^3/uL Lymph # (Auto) 1.6 (1.5-3.5) 10^3/uL Ada # (Auto) 0.7 (0.0-1.0) 10^3/uL Eos # (Auto) 0.1 (0.0-0.7) 10^3/uL Baso # (Auto) 0.0 (0.0-0.1) 10^3/uL Absolute Nucleated RBC 0.00 x10^3/uL Nucleated RBC % 0.0 /100WBC Sodium 131 L (135-145) mmol/L Potassium 5.1 H (3.5-5.0) mmol/L Chloride 103 (101-111) mmol/L Carbon Dioxide 14 L (21-32) mmol/L Anion Gap 14.0 H (6-13) BUN 70 H (6-20) mg/dL Creatinine 2.7 H (0.4-1.0) mg/dL Estimated GFR (MDRD) 17 L (>89) Glucose 102 H (70-100) mg/dL Calcium 9.2 (8.5-10.3) mg/dL Phosphorus (2.5-4.6) mg/dL Magnesium (1.7-2.8) mg/dL Iron (28-170) ug/dL TIBC (250-450) ug/dL % Saturation (20-50) % Transferrin (192-382) mg/dL Total Bilirubin 0.5 (0.2-1.0) mg/dL AST 28 (10-42) IU/L ALT 20 (10-60) IU/L Alkaline Phosphatase 237 H (42-121) IU/L Total Protein 8.0 (6.7-8.2) g/dL Albumin 3.4 (3.2-5.5) g/dL Globulin 4.6 H (2.1-4.2) g/dL Albumin/Globulin Ratio 0.7 L (1.0-2.2) Lipase 28 (22-51) U/L Vitamin B12 (180-914) pg/mL Folate (5.90 - >24.8) ng/mL Blood Type Antibody Screen Crossmatch IS Only ABX Reporting Has patient been on IV antibiotics over the past 48 hours?: Yes Sepsis Event Note (H) - Evaluation Current Stage of Sepsis: Ruled out Assessment/Plan - Problem List (1) Diarrhea Impression: 1. Chemo induced diarrhea with associated dehydration and electrolyte disturbance 01/31 stool test is positive for camplyobacter, continue treated with Azithromycin will test C.diff with PCR continue hydration continue correction of electrolyte continue Lactobacillus 2. Acute renal insufficiency superimposed on chronic kidney disease stage III, secondary to prerenal azotemia 01/31 better today, creatinine is down to 2.0 from 2.7. continue IVF but caution of fluid overloaded 3. Metastatic ovarian cancer with liver involvement status post first round of chemotherapy with Camptosar Patient is status post first chemotherapy. Patient's primary oncologist is Bette Perry. Patient to hold off on chemotherapy until diarrhea and electrolyte disturbance as well as acute renal insufficiency have abated. 4. Hypertension Patient is currently is normotensive and will defer off of bp meds for now. 5. Major depressive disorder Currently patient is ill-appearing as a result medical condition and not psychiatric illness and does not require to be placed on an SSRI for now 6. Anemia with macrocytosis 01/31 anemia study reveal pt has iron deficiency, iron is prescribed to pt pt had one unit blood transfusion, HGB is 8.6 now, continue CBC test to monitor 7, generalized weakness 01/31 pt report she feel general weakness, likely caused by anemia, chemotherapy, and metastatic ovarian cancer. pt also report she is safety d/c to home now consult with PT/OT, will followup recommendation 8, HTN pt has normative BP now, reconcile home BP vital monitor
[2019-01-31] MEDS ORDERED: ALBUTEROL NEB 2.5 MG/3 ML INH PRN (18:42)
[2019-01-31] MEDS: FERROUS SULFATE 325 MG TABLET PO SCH (19:29)
[2019-01-31] MEDS: CARVEDILOL 3.125 MG TABLET PO SCH (20:39)
[2019-01-31] MEDS: buPROPion SR 150 MG TABLET PO SCH (20:40)
[2019-02-01] MEDS: traMADol 50 MG TABLET PO PRN (00:33)
[2019-02-01] MEDS: CALCIUM CARBONATE CHEW 500 MG TABLET PO SCH ×2 (00:33→09:02)
[2019-02-01] MEDS: SODIUM CHLORIDE FLUSH 0.9% 10 ML SYRINGE IVP SCH (00:38)
[2019-02-01] MEDS: DEXTROSE 5%-0.9% NACL 1,000 ML IV SCH (05:19)
[2019-02-01 06:00] LABS: BASOPHILS % (AUTO) 0.1 %; EOSINOPHILS # (AUTO) 0.1 10^3/uL (0.0-0.7); EOSINOPHILS % (AUTO) 1.9 %; HGB - HEMOGLOBIN 8.5 g/dL (12.0-16.0); LYMPHOCYTES # (AUTO) 1.1 10^3/uL (1.5-3.5); LYMPHOCYTES % (AUTO) 26.4 %; MEAN CORPUSCULAR HEMOGLOBIN 32.5 pg (27.0-31.0); MEAN CORPUSCULAR HGB CONC 33.1 g/dL (32.0-36.0); MEAN CORPUSCULAR VOLUME 98.1 fL (81.0-99.0); MEAN PLATELET VOLUME 7.5 fL (7.9-10.8); MONOCYTES # (AUTO) 0.6 10^3/uL (0.0-1.0); MONOCYTES % (AUTO) 14.6 %; NEUTROPHILS # (AUTO) 2.5 10^3/uL (1.5-6.6); PLT - PLATELET COUNT 199 10^3/uL (130-450); RED BLOOD COUNT 2.61 10^6/uL (4.20-5.40); RED CELL DISTRIBUTION WIDTH 18.7 % (12.0-15.0); WHITE BLOOD COUNT 4.3 x10^3/uL (4.8-10.8)
[2019-02-01 06:14] LABS: ALBUMIN 2.6 g/dL (3.2-5.5); ALBUMIN/GLOBULIN RATIO 0.8 (1.0-2.2); BILIRUBIN,TOTAL 0.6 mg/dL (0.2-1.0); CALCIUM 8.3 mg/dL (8.5-10.3); CREATININE 1.4 mg/dL (0.4-1.0); MAGNESIUM 1.5 mg/dL (1.7-2.8)
[2019-02-01] MEDS ORDERED: MAGNESIUM SULFATE 2 GRAM 2 GM/50 ML BAG IV ONE (08:07)
[2019-02-01] MEDS ORDERED: DEXTROSE 5%-0.9% NACL 1,000 ML IV SCH (08:11)
[2019-02-01 08:59] VITALS: BP 146/81
[2019-02-01] MEDS ORDERED: LOSARTAN 50 MG TABLET PO SCH (09:00)
[2019-02-01] MEDS: FERROUS SULFATE 325 MG TABLET PO SCH (09:00)
[2019-02-01] MEDS: MAGNESIUM OXIDE 400 MG TABLET PO SCH (09:00)
[2019-02-01] MEDS: buPROPion SR 150 MG TABLET PO SCH (09:00)
[2019-02-01] MEDS: CARVEDILOL 3.125 MG TABLET PO SCH (09:01)
[2019-02-01] MEDS: LACTOBACILLUS RHAMNOSUS GG CAPSULE PO SCH (09:01)
[2019-02-01] MEDS: SUCRALFATE 1 GM/10 ML UDC PO SCH (09:02)
[2019-02-01] MEDS: ENOXAPARIN 30 MG/0.3 ML SYRINGE SUBQ SCH (09:06)
[2019-02-01] MEDS: AZITHROMYCIN INJ 500 MG in SODIUM CHLORIDE 0.9% 250 ML IV SCH (09:08)
[2019-02-01] MEDS: DIPHENOX/ATROPINE 2.5/0.025 MG TABLET PO PRN (09:08)
[2019-02-01] MEDS: POLYETHYLENE GLYCOL 3350 17 GM PACKET PO SCH (09:12)
[2019-02-01] MEDS ORDERED: PANTOPRAZOLE 40 MG TABLET PO SCH (11:00)
== END 2019-02-01 12:52 | disposition home or self-care (01) | DRG 372 ==
LOC: ED 18:36 → OBSVTOIN 22:03 → MS2 22:03 → UNDOADMOB 22:03 → MS3 22:03 → INTOOBSV 22:03 → OBSVTOIN 01-31 17:55 → UNDODISIN 02-01 12:52
PROVIDERS: ADMIT Family Medicine; ATTEND Nurse Practitioner Gerontology
DX: N17.9 Acute kidney failure, unspecified (principal); A04.5 Campylobacter enteritis; R11.0 Nausea; E87.2 Acidosis; K52.1 Toxic gastroenteritis and colitis; C56.9 Malignant neoplasm of unspecified ovary; C78.7 Secondary malignant neoplasm of liver and intrahepatic bile duct; E87.1 Hypo-osmolality and hyponatremia; N28.9 Disorder of kidney and ureter, unspecified; T45.1X5A Adverse effect of antineoplastic and immunosuppressive drugs, initial encounter; E86.0 Dehydration; E87.5 Hyperkalemia; D50.9 Iron deficiency anemia, unspecified; D53.9 Nutritional anemia, unspecified; I12.9 Hypertensive chronic kidney disease with stage 1 through stage 4 chronic kidney disease, or unspecified chronic kidney disease; Z88.8 Allergy status to other drugs, medicaments and biological substances; Z51.5 Encounter for palliative care; N18.3 Chronic kidney disease, stage 3 (moderate); F32.9 Major depressive disorder, single episode, unspecified; K21.9 Gastro-esophageal reflux disease without esophagitis; Z79.899 Other long term (current) drug therapy
CPT/HCPCS: 36415; 36430; 80053; 80069; 82607; 82746; 83540; 83690; 83735; 84466; 85014; 85018; 85025; 86850; 86900; 86901; 86920; 87045; 87046; 87493; 96361; 96365; 96367; 96372; 96375; 99283; 99285; A9270; G0378; J1650; J7040; P9016; 96360; 96366; 96368

== ENCOUNTER 2019-02-06 16:03 | Outpatient (CLI) | payer MEDICARE, OTHER ==
--- NOTE | 2019-02-06 16:04 | CONSULTATION NOTE ---
Palliative Care Consultation - Referral Referring Provider: Briana LOCK Time of Visit: [id number] Referral setting: Home Referral Reason: Recurrent Ovarian Cancer/Goals of Care - Information Sources Records reviewed: RN notes reviewed, Previous records reviewed History/Review of Systems obtained from: Patient, Friend (Elaine present for visit) Exam limitations: No limitations - History of Present Illness Brief History of Present Illness: Patient has recurrent ovarian cancer, and most recent CT scan done on 12/21/2018 shows continued presence of peritoneal disease and development of hepatic metastatic disease. Patient was started on on iriontecan, resulting in severe diarrhea, and hospitalization for acute renal insufficiency superimposed on chronic kidney disease, dehydration, and acute metabolic acidosis secondary to prerenal azotemia. She did test positive for camplylobacter in her stool, and was treated by hospitalist with azithromycin she has since completed. She perceives that she did not address her diarrhea and declining status in a timely way, and this is how she got in trouble. She reports she has tolerated her previous multiple lines of chemotherapy, with very little difficulty, but is somewhat shaken by her most recent decline. Patient presents today with significant dyspnea, poor activity tolerance, her diarrhea is resolving, she has had weight loss and continues with anemia. She met with Dr. Perry this week, unfortunately her note is not available, she was told to discontinue her ferrous sulfate and magnesium. They held for treatment, she has an appointment next Saturday, she is unclear if she has any labs prior. Patient was originally diagnosed and 01/2016 with stage III, received debulking surgery, but did have mesenteric implants and bulky disease around her cecum. She also had a pleural effusion in there as well. She did have a good response, but did recur in 12/2016. She was on liposomal Doxil and Avastin, though this had to be discontinued because of hyper tensive crises. She does understand her current treatment, as she had progressed on but Topetecan, is less likely to induce a remission, and was offered the choice of supportive or hospice care. She is hoping to continue treatment, but does present today with poor performance status, high symptom burden, and concern for ongoing weight loss and increasing abdominal pain. Palliative care meeting with patient for the first time, patient admits to not participating and looking forward in the future. She does have a who has moderate and progressive dementia, does not have any advanced care planning documents, and is needing more assistance and support.. 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 denies: Oophrectomy HEENT: reports: Tonsil/Adenoidectomy - Substance History Use: Uses substance without health or social issues: Tobacco (remote history) Family History - Family History Family History: Mother: (at age 73 heart issues; mother old age), Father: , Sister: Alive and Well (2 daughters and son;two sisters), Brother: Alive and Well, Other family: Alive and Well Medications/Allergies - Medications Home Medications: Ambulatory Orders Medication Instructions Recorded Confirmed Carvedilol 6.25 mg PO BID 02/16/16 02/07/19 Losartan [Cozaar] 50 mg PO DAILY 02/16/16 02/07/19 Omeprazole [PriLOSEC] 20 mg PO DAILY 02/16/16 02/07/19 Cyanocobalamin (Vitamin B-12) 1,000 mcg PO DAILY 03/27/16 02/07/19 [B-12] Bupropion HCl [Wellbutrin Sr] 150 mg PO BID 04/02/16 02/04/19 Cyclosporine [Restasis] 1 drops EACHEYE BID 04/16/18 02/07/19 Albuterol Sulf [Ventolin Hfa 1 - 2 puffs INH Q4HR PRN #1 inhaler 07/14/18 02/07/19 Inhaler] Furosemide 20 mg PO DAILY PRN 11/19/18 02/07/19 Diphenoxylate/Atropine [Lomotil] 1 each PO DAILY PRN MDD 8 tabs 01/28/19 02/07/19 traMADol [Ultram] 50 mg PO Q4HR PRN #20 tablet 01/31/19 02/07/19 Loperamide HCl [Imodium A-D] 2 mg PO PRN PRN 02/07/19 02/07/19 - Allergies Allergies/Adverse Reactions: Allergies Allergy/AdvReac Type Severity Reaction Status Date / Time morphine Allergy Nausea Verified 02/04/19 14:18 tolterodine Allergy Unknown Verified 02/04/19 14:18 lansoprazole AdvReac Unknown Verified 02/04/19 14:18 lisinopril AdvReac Rash Verified 02/04/19 14:18 oxybutynin AdvReac Cramps Verified 02/04/19 14:18 ranitidine AdvReac Unknown Verified 02/04/19 14:18 simvastatin AdvReac Unknown Verified 02/04/19 14:18 Review of Systems - Constitutional Constitutional: reports: Fatigue, Weakness, Weight loss (162;). denies: Fever, Chills - Eyes Eyes: reports: Vision loss, Corrective lenses - Ears, Nose & Throat Ears, Nose & Throat: reports: Dry mouth - Cardiovascular Cardiovascular: reports: Edema, Exertional dyspnea, Decr. exercise tolerance. denies: Chest pain - Respiratory Respiratory: reports: SOB with exertion. denies: Cough, Wheezing, SOB at rest - Gastrointestinal Gastrointestinal: reports: Diarrhea (has slowed down; loose stool this am), Early satiety. denies: Nausea, Vomiting, Reflux/heartburn - Genitourinary Genitourinary: reports: Frequency - Musculoskeletal Musculoskeletal: reports: Muscle weakness, Assistive devices (uses walker) - Integumentary Integumentary: reports: Dryness - Neurological Neurological: reports: General weakness - Psychiatric Psychiatric: reports: Depression, Anxiety - Hematologic/Lymphatic Hematologic/Lymphatic: reports: Anemia, Recurrent infections - All Other Systems All Other Systems: reports: Reviewed and negative Physical Exam - Vital Signs Temperature: 96.6 C Pulse Rate: 61 (@ rest; 103 with activity) Respiratory Rate: 18 (@ rest; 24 with activity) O2 Saturation: 99 (@ rest; 91 with activity) Blood Pressure: 122/82 (sitting; 114/72 standing) - Physical Exam General Appearance: positive: No acute distress, Alert Eyes Bilateral: positive: Normal inspection ENT: positive: Other (c/o dry mouth mucous membranes moist). negative: Pharyngeal erythema Neck: positive: No JVD, Trachea midline Cardiovascular: positive: Regular rate & rhythm, Tachycardia (with activity) Respiratory: positive: Diminished in bases. negative: Wheezes, Rales, Rhonchi Abdomen: positive: Soft, Nml bowel sounds, Tenderness Skin: positive: Pallor, Dryness, Other (small pustule right [place]) Extremities: positive: Pedal edema (2-3 + up to knees;) Neurologic/Psychiatric: positive: Oriented x3, Mood/affect nml, Weakness Palliative Care - POLST Patient has POLST: No POLST Status: Full Code Pain: Pain worsening, Location (pain is mid abdominal; radiates into RUQ; using only Tramadol at nighttime; doesn't feel it warrants medication during the day; though rates severity at 7/10) Tiredness/Fatigue: Severe (7-10) Drowsiness/Sedation: Severe (7-10) Nausea: None Depression: Moderate (4-6) Anxiety: Mild (1-3) Dyspnea: Severe (7-10) Anorexia: Moderate (4-6), Weight loss Sleep: Variable sleep pattern Constipation: No Feelings of wellbeing/Perceived Quality of Life: Fair, Worsening Performance Status: Patient's performance status mostly limited by her breathlessness, she does describe overall generalized weakness, and poor activity tolerance. She has been able to bathe independently though finds this still overwhelming. She has hired 2 days a week to help with household tasks. Her daughter is coming for the weekend she has not return to previous level of functioning which included being able to drive, and though her activity tolerance has been down for awhile. - Palliative Care Discussion: Patient does seem to have some understanding about the seriousness of her illness, though admits to not having done any advanced care planning or planning for her who has progressive dementia. She is aware need to further explore this, discussed currently she would want her daughter from [place] to be her Durable Power of Tanker Truck Driver for Health Care Decisions Alexandre Paulsonedgar [phone], aware would not be able to participate if she were unable to speak for herself. had answered the door, reporting "she is sick", and sat in the chair the whole time playing a hand poker game and did not engage in conversation. He is also very hard of hearing. She has a very supportive friend Leann Loyola [phone], who has been present and helping but expresses concerns as well regarding lack of planning. Patient's hope is to make it to her grandsons wedding this fall, though she now has had a hospitalization, remains quite weak, functionally declining as well as increasing symptom burden. She would at end of life, if possible want to be in her own home. Her friend Elaine, reports her daughter was planning to take FMLA and stay with her during this time. This is not shared by the patient nor aware if patient aware of this. Introduced POLST, in the context of her serious illness, she would want not want "heroics", but would need this translated into a POLST. Her daughter who is in ED nurse / manager car is coming tonight, provided forms with encouragement to do that DPOA as soon as possible. To engage her in discussion regarding her wishes and long-term planning. We also discussed in planning for the future for her , would recommend getting his name on waiting lists, or explore with daughters what the plan is if to bring him closer to them. Most facilities have limitations as far as how quickly can accommodate. Impression and Recommendations - Palliative Care Impression: This is a 78-year-old woman with recurrent ovarian cancer, she has progressed despite several lines of chemotherapy, most recently was treated with Irinotecan with resulting severe diarrhea and hospitalization with acute kidney injury. She presents with fairly high symptom burden, poor activity tolerance functional decline, shortness of breath with activity, and increasing abdominal pain. Palliative care to assist with advanced care planning, symptom management, and transition to hospice when appropriate Recommendations/Counseling Done: 1. Recurrent ovarian cancer with liver mets. Patient tolerated Irinotecan quite poorly, did wait too long to access help regarding severe diarrhea and dehydration, does now have Lomotil, Would need closer monitoring and instruction regarding management. Patient's treatment was put on hold last week, and will be revisited Saturday. Counseling provided regarding weighing benefits and burdens of treatment and decision making, patient very much wants to move forward, she is never had this much difficulty before. Oncology note not available, unclear current plan. 2. Lower extremity edema. Patient has persistent lower extremity edema, skin quite taut and uncomfortable, despite elevation of legs. Has furosemide 20 mg low dose, instructed to take for couple days to see if can improve. Patient unclear if scheduled for labs, will follow up on Saturday if not will add BMP. 3. Dyspnea. This is likely multifactorial in origin, patient has had anemia, presents with ongoing functional decline and inactivity, she is at high risk for recurrent infections. She does not present with cough, fever, or chills but does have a drop in her O2 sats with ambulation. But not below 88% which is threshold for oxygen. We will continue to monitor, at this point can be controlled with pacing activity. 4. Abdominal pain. Suspect this is more attributed to her cancer, than side effects of chemotherapy. She continues with just soft stools, no recurrence of diarrhea today. She is using tramadol at night, does not feel she is met the threshold for using pain medication during the day. She has used oxycodone in the past as well without problems. We will continue to monitor if persistent, and counseling provided regarding goal of pain management. 5. Generalized weakness. Patient is ambulatory at home with walker, is trying to stay active and ambulate short distances, but is limited by fatigue and dyspnea. She has hired some help, is trying to "figure out how to use them", encouraged to continue with support in the home setting and pace activities. 6. Advanced care planning. Introduced advanced care planning needs, does need durable power of health contract attorney as is not appropriate given his dementia. Initiate conversations regarding goals of care, POLST form, provided 5 wishes as a discussion tool. Daughter is coming from [place] as a nurse, encouraged some difficult conversations, given that her decline has "caught her unawares". There is also significant concern about plan for her , as she continues to progress in her illness. Encouraged to engage family members in this conversation as well. Encouraged daughter to reach out if has any questions regarding local resources or further questions about forms. Agreed will set follow-up visit after decision made on Saturday regarding treatment.. Time Spent: 75 minutes with greater than 50% of this done in counseling regarding goals of care, symptom management, resources in the community, coordination of care.
== END 2019-02-06 16:04 | disposition home or self-care (01) ==
LOC: PC 16:03
PROVIDERS: ATTEND Nurse Practitioner Adult Health
DX: Z51.5 Encounter for palliative care (principal); C56.9 Malignant neoplasm of unspecified ovary; C78.6 Secondary malignant neoplasm of retroperitoneum and peritoneum; C78.7 Secondary malignant neoplasm of liver and intrahepatic bile duct; R60.0 Localized edema; R06.02 Shortness of breath; R10.9 Unspecified abdominal pain; K52.1 Toxic gastroenteritis and colitis; T45.1X5A Adverse effect of antineoplastic and immunosuppressive drugs, initial encounter; R53.1 Weakness; I10 Essential (primary) hypertension; R63.4 Abnormal weight loss; G62.0 Drug-induced polyneuropathy; K21.9 Gastro-esophageal reflux disease without esophagitis; Z86.79 Personal history of other diseases of the circulatory system; Z87.891 Personal history of nicotine dependence; Z86.2 Personal history of diseases of the blood and blood-forming organs and certain disorders involving the immune mechanism; Z86.19 Personal history of other infectious and parasitic diseases; Z79.899 Other long term (current) drug therapy; Z63.6 Dependent relative needing care at home
CPT/HCPCS: 99345